=== PATIENT | female | born 1960 | race Caucasian/White ===

== ENCOUNTER → 2016-07-06 | Outpatient (CLI) | payer BC ==
[~2016-07-06] MED LIST: ACET325T96 PO; ALLO100T PO; ASPI1TAB83 PO; HYDR-3419 PO; INSDGI SC; INSU1.2I INJ; LPT/20 PO; LSN5 PO; METF1000 PO; NITR1CAP33 PO; NVLGI/PEN SQ; NVLGIPEN SQ; OMEP20CA9 PO; OXYC-57 PO; POTA1CAP2 PO; POTASSIUM CITRATE PO; TRIA0.1L TOP; VITAMIN B12 PO; VITAMIN D PO; ZINC13CR TOP; [UNRECOGNIZED DRUG - CODE] TOP; [UNRECOGNIZED DRUG - OTHER] PO
--- NOTE | 2016-07-06 20:32 | DIAGNOSTIC IMAGING REPORT ---
KUB HISTORY: Left-sided flank pain. COMPARISON: KUB 12/19/2015. FINDINGS: The bowel gas pattern is unremarkable. There are no dilated loops of small bowel to suggest an obstruction. Prior cholecystectomy. Bilateral sacroiliac joint sclerosis remains unchanged. There are few punctate calcifications in the deep pelvis which likely represent phleboliths. These are similar to the prior studies. Stable 11 mm stone within the upper pole of the left kidney. No right renal calculi identified. No pneumoperitoneum or pneumatosis. IMPRESSION: Stable 11 mm left renal stone. No ureteral calculi identified. Electronically signed by: Fernando Nichols M.D. 07/06/2016 8:31 PM Dictated Date/Time: 07/06/2016 8:28 PM
== END | disposition home or self-care (01) ==
LOC: C.LAB 17:32
PROVIDERS: ATTEND Urology
DX: N39.0 Urinary tract infection, site not specified (principal); N20.0 Calculus of kidney

== ENCOUNTER → 2016-07-10 | Outpatient (CLI) | payer BC ==
--- NOTE | 2016-07-10 17:37 | DIAGNOSTIC IMAGING REPORT ---
CT SCAN OF THE ABDOMEN AND PELVIS WITHOUT IV CONTRAST CLINICAL HISTORY: Flank pain. COMPARISON STUDY: Abdominal CT dated 12/19/2015. TECHNIQUE: CT scan of the abdomen and pelvis is performed from the lung bases to the proximal femora. Images are reviewed in the axial, sagittal, and coronal planes. IV contrast was not administered for this examination. Automated dose control exposure was utilized. CT DOSE: 880.05 mGycm FINDINGS: Lung bases: The heart is normal in size and without pericardial effusion. The lung bases are clear. There is a small hiatal hernia. Liver: The unenhanced liver is normal in size, contour, and attenuation. There is no intrahepatic biliary ductal dilatation. Gallbladder: Surgically absent noting clips in the gallbladder fossa. Spleen: Normal in size and attenuation. Pancreas: Unremarkable. Adrenal glands: A 2.0 cm left adrenal nodule meets CT criteria for a fat-containing adenoma. The right adrenal gland is unremarkable. Kidneys: The unenhanced kidneys are normal in size. There is a 1.5 cm obstructing calculus in the mid left ureter seen on axial image #253. This is located at the level of L5-S1 and causes only minimal left-sided hydronephrosis. 2 additional nonobstructing calculi are seen in the left upper pole measuring up to 9 mm. No right renal calculi are identified and there is no right-sided hydronephrosis. There is no evidence of contour deforming renal mass lesion. There is a circumaortic left renal vein. Abdominal vasculature: The abdominal aorta is normal in course and caliber. Bowel: The small bowel and colon are normal in course and caliber. There is mild colonic diverticulosis without CT evidence of acute diverticulitis. The appendix is well-visualized and normal. Peritoneum: There is no intraperitoneal free air or abdominal ascites. There is a large fat-containing umbilical hernia. Lymphadenopathy: None. Pelvic viscera: The bladder, uterus, and adnexa are normal as visualized. Skeletal structures: No lytic or blastic lesions are seen. Advanced sclerotic change is seen involving the sacroiliac joints. IMPRESSION: 1. There is a 1.5 cm obstructing calculus in the mid left ureter. This causes only minimal left-sided hydronephrosis. 2. Additional nonobstructing left renal calculi as above. 3. Mild colonic diverticulosis without CT evidence of acute diverticulosis. 4. Large fat-containing umbilical hernia. 5. Additional findings as above. Electronically signed by: Jerson Avitia M.D. 07/10/2016 5:35 PM Dictated Date/Time: 07/10/2016 5:29 PM
== END | disposition home or self-care (01) ==
LOC: C.CTS 17:04
PROVIDERS: ATTEND Urology
DX: N20.0 Calculus of kidney (principal); N20.1 Calculus of ureter; K57.30 Diverticulosis of large intestine without perforation or abscess without bleeding; K42.9 Umbilical hernia without obstruction or gangrene

== ENCOUNTER → 2016-07-11 | Outpatient (CLI) | payer BC | END | disposition home or self-care (01) | LOC: C.LABSPEC 17:04 | PROVIDERS: ATTEND Urology | DX: N39.0 Urinary tract infection, site not specified (principal) ==

== ENCOUNTER → 2016-07-17 | Outpatient (CLI) | payer BC ==
[2016-07-17 10:44] LABS: ESTIMATED AVERAGE GLUCOSE 174 mg/dl; HA1C FLAG Normal (Normal)
[2016-07-17 11:58] LABS: RATIO 13.4 mcg/mg (0-30.0)
== END | disposition home or self-care (01) ==
LOC: C.LAB 08:46
PROVIDERS: ATTEND Nurse Practitioner Family
DX: E11.65 Type 2 diabetes mellitus with hyperglycemia (principal)

== ENCOUNTER → 2016-07-25 | Outpatient (CLI) | payer BC ==
[2016-07-25 10:02] LABS: ALT/SGPT 40 U/L (12-78); BLOOD UREA NITROGEN 20 mg/dl (7-18); BUN/CREATININE RATIO 23.1 (10-20); CALCIUM 9.4 mg/dl (8.5-10.1); CARBON DIOXIDE 26 mmol/L (21-32); CHLORIDE 103 mmol/L (98-107); CREATININE 0.87 mg/dl (0.60-1.20); GLUCOSE 165 mg/dl (70-99); POTASSIUM 4.2 mmol/L (3.5-5.1); SODIUM 139 mmol/L (136-145)
[2016-07-25 10:05] LABS: ALKALINE PHOSPHATASE 94 U/L (45-117); AST/SGOT 23 U/L (15-37); URIC ACID 3.4 mg/dl (2.6-7.2)
== END | disposition home or self-care (01) ==
LOC: C.LAB 08:34
PROVIDERS: ATTEND Urology
DX: N20.1 Calculus of ureter (principal)

== ENCOUNTER 2016-08-02 07:28 | Day surgery (SDC) | payer BC ==
[2016-07-30 09:38] VITALS: BMI 38.0
--- NOTE | 2016-07-30 10:08 | PAT Medication Instructions ---
Service Date Jul 30, 2016. Current Home Medication List Allopurinol (Zyloprim), 100 MG PO BID Aspirin (Aspirin), 81 MG PO QAM Atorvastatin (Atorvastatin Calcium), 20 MG PO HS Citric Acid/Sodium Citrate (Citric Acid/Sodium Citrat), 10 ML PO NOON/HS Insulin Aspart (Novolog Flexpen), 5 UNITS SQ BREAKFAST Insulin Aspart (Novolog Flexpen), 10 UNITS SQ LUNCH Insulin Aspart (Novolog Flexpen), 12 UNITS SQ DINNER Insulin Glargine (Toujeo Solostar), 33 INJ HS Lisinopril (Lisinopril), 2.5 MG PO QAM Metformin Hcl (Glucophage), 1,000 MG PO BID Nitrofurantoin Macrocrystals (Macrodantin), 50 MG PO HS Omeprazole (Prilosec), 20 MG PO HS PRN for ACID Oxycodone/Acetaminophen 5MG/325MG (Percocet 5MG/325MG), 1 TABLET PO Q6H PRN for Pain Triamcinolone Acet 0.1% (Kenelog 0.1%), 1 APPL TOP DAILY Zinc Oxide (Topical) (Desitin), 1 APPL TOP DAILY PRN for PRN [Potassium Citrate ], 10 ML PO BID [Vitamin B12], 1 TAB PO QAM [Vitamin D], 1 TAB PO QPM Medication Instructions For Your Scheduled Surgery Aspirin (Aspirin), 81 MG PO QAM (check with surgeon for instructions) - Hold the following medications 24 hours prior to surgery: Zinc Oxide (Topical) (Desitin), 1 APPL TOP DAILY PRN for PRN Triamcinolone Acet 0.1% (Kenelog 0.1%), 1 APPL TOP DAILY - Hold the following medications 48 hours prior to surgery: Metformin Hcl (Glucophage), 1,000 MG PO BID - Hold the following medications the morning of surgery: [Vitamin B12], 1 TAB PO QAM [Potassium Citrate ], 10 ML PO BID Lisinopril (Lisinopril), 2.5 MG PO QAM Insulin Aspart (Novolog Flexpen), 5 UNITS SQ BREAKFAST Insulin Aspart (Novolog Flexpen), 10 UNITS SQ LUNCH Insulin Aspart (Novolog Flexpen), 12 UNITS SQ DINNER - Take the following medications the morning of surgery with a sip of water: Allopurinol (Zyloprim), 100 MG PO BID Oxycodone/Acetaminophen 5MG/325MG (Percocet 5MG/325MG), 1 TABLET PO Q6H PRN for Pain (okay to take up to 4 hours prior to surgery if needed) - Take the following medications as scheduled the night before surgery: [Vitamin D], 1 TAB PO QPM [Potassium Citrate ], 10 ML PO BID Omeprazole (Prilosec), 20 MG PO HS PRN for ACID Nitrofurantoin Macrocrystals (Macrodantin), 50 MG PO HS Insulin Glargine (Toujeo Solostar), 33 INJ HS Citric Acid/Sodium Citrate (Citric Acid/Sodium Citrat), 10 ML PO NOON/HS Atorvastatin (Atorvastatin Calcium), 20 MG PO HS Allopurinol (Zyloprim), 100 MG PO BID Oxycodone/Acetaminophen 5MG/325MG (Percocet 5MG/325MG), 1 TABLET PO Q6H PRN for Pain If you have any questions please call us at [phone] (Martha Nam PA-C) or [phone] or [phone]
--- NOTE | 2016-07-30 10:33 | DIAGNOSTIC IMAGING REPORT ---
CHEST 2 VIEWS ROUTINE CLINICAL HISTORY: Preoperative chest. Left-sided nephrolithiasis. COMPARISON STUDY: 08/19/2014 FINDINGS: The cardiac and mediastinal contours are normal. There is no evidence of focal pulmonary consolidation. There is no evidence of failure. No pleural effusions are visualized.[ IMPRESSION: No active disease in the chest. Electronically signed by: Vicente Ladd M.D. 07/30/2016 10:32 AM Dictated Date/Time: 07/30/2016 10:32 AM
[2016-07-30 10:54] LABS: BASO % 0.2 %; BASO ABS # 0.02 K/uL (0-0.2); COMPLETE YES; HEMATOCRIT 38.7 % (37-47); IG% 0.2 %; LYMPH % 35.8 %; LYMPH ABS # 2.98 K/uL (1.2-3.4); MEAN CELL VOLUME 90.2 fL (80-100); MEAN CORPUSCULAR HEMOGLOBIN 29.1 pg (25-34); MEAN CORPUSCULAR HGB CONC 32.3 g/dl (32-36); MEAN PLATELET VOLUME 10.5 fL (7.4-10.4); MONO % 5.4 %; NEUT % 53.4 %; PLATELET COUNT 282 K/uL (130-400); RED BLOOD COUNT 4.29 M/uL (4.2-5.4); WHITE BLOOD COUNT 8.32 K/uL (4.8-10.8)
[2016-07-30 12:15] LABS: URINE APPEARANCE CLEAR (CLEAR); URINE BILIRUBIN NEG (NEG); URINE COLOR YELLOW; URINE NITRITE NEG (NEG); URINE SPECIFIC GRAVITY 1.025 (1.000-1.030); UROBILINOGEN NEG (NEG)
[2016-07-30 12:21] LABS: MANUAL MICROSCOPIC REQUIRED? NO; REVIEW REQ? NO
[~2016-08-02] VITALS: Ht 144.8 cm; Wt 80.4 kg
[~2016-08-02 07:28] MED LIST changes: -ACET325T96 PO; +CIPROFLOXACIN / D5W 400 MG IV SCH; -HYDR-3419 PO; -INSDGI SC; -POTA1CAP2 PO; -[UNRECOGNIZED DRUG - CODE] TOP
[2016-08-02 07:51] VITALS: BP 147/81; PULSE 92; TEMP 36.4; O2SAT 99; Ht 144.8 cm; Wt 80.4 kg
[2016-08-02] MEDS ORDERED: LIDOCAINE HCL 2% 2 ML VIAL (20MG/ML) ONE (09:40)
[2016-08-02] MEDS ORDERED: MIDAZOLAM HCL 1 MG/ML 2ML VIAL ONE (09:40)
[2016-08-02] MEDS ORDERED: FENTANYL CITRATE INJ 50 MCG/1 ML 2 ML VIAL ONE ×2 (09:40→10:15)
[2016-08-02] MEDS ORDERED: PROPOFOL IV EMULSION 10 MG/ML 20 ML VIAL IV ONE (09:40)
[2016-08-02] MEDS ORDERED: ONDANSETRON INJ 2 MG/ML 2 ML VIAL ONE (09:40)
--- NOTE | 2016-08-02 09:52 | History & Physical Bridge Note ---
H&P Re-Evaluation Bridge Note: I have examined the patient, reviewed the History & Physical and in the interval since the performance of the History & Physical I have noted the following changes of clinical significance: No changes noted
[2016-08-02] MEDS ORDERED: CONRAY 30% 150ML BOTTLE INSTIL ONE (11:21)
[2016-08-02] MEDS ORDERED: NALOXONE HCL 0.4 MG/1 ML VIAL/CARP IV PRN (11:30)
[2016-08-02] MEDS ORDERED: LABETALOL HCL IV 5 MG/ML 20ML IV PRN (11:30)
[2016-08-02] MEDS ORDERED: FENTANYL CITRATE INJ 50 MCG/1 ML 2 ML VIAL IV PRN (11:30)
[2016-08-02] MEDS ORDERED: ATROPINE SULFATE 0.1 MG/ML 5ML SYR IV PRN (11:30)
[2016-08-02] MEDS ORDERED: PROMETHAZINE HCL INJ 12.5 MG in SODIUM CHLORIDE 0.9% 50ML 50 ML IV PRN (11:30)
[2016-08-02] MEDS ORDERED: ONDANSETRON INJ 2 MG/ML 2 ML VIAL IV PRN (11:30)
[2016-08-02] MEDS ORDERED: FLUMAZENIL 0.1 MG/1 ML 10 ML VIAL IV PRN (11:30)
[2016-08-02] MEDS ORDERED: EpHEDrine SULFATE INJ 50 MG/ML AMP IV PRN (11:30)
--- NOTE | 2016-08-02 11:52 | [facility] Post Operative Brief Note ---
Immediate Operative Summary Operative Date Aug 02, 2016. Pre-Operative Diagnosis Left ureteral stones, nephrolithiasis Post-Operative Diagnosis Left ureteral stones, nephrolithiasis Procedure(s) Performed Cystoscopy, Left Ureteroscopy, Laser Lithotripsy, Stone Extraction, Stent Placement Surgeon Dr. Rodriguez Information Operator Surgeon(s) none Estimated Blood Loss 10 cc Findings large left ureteral stone at mid ureteral stone Specimens A: ureteral stone fragments Drains 5 by 24 stent Complication(s) None
--- NOTE | 2016-08-02 11:56 | Discharge Instructions ---
Discharge Instructions Visit Reason for Visit: Stones Discharge Discharge Diagnosis / Problem: post op left ureteroscopy and laser litho and l stent Discharge Goals Goal(s): Decrease discomfort, Improve disease control Activity Recommendations Activity Limitations: resume your previous activity Anesthesia . Post Anesthesia Instructions: If you have had General Anesthesia or IV Sedation: * Do not drive today. * Resume driving when surgeon permits. * Do not make important decisions or sign legal documents today. * Call surgeon for: 1. Temperature elevations greater than 101 degrees F. 2. Uncontrollable pain. 3. Excessive bleeding. 4. Persistent nausea and vomiting. 5. Medication intolerance (nausea, vomiting or rash). * For nausea and vomiting use only clear liquids such as: tea, soda, bouillon until nausea subsides, then gradually increase diet as tolerated. * If you have any concerns or questions, call your surgeon's office. If physician is unavailable and it is an emergency, call 911 or go to the nearest emergency room. . Diet Recommendations Recommended Home Diet: resume previous diet Procedures Procedures Performed: Cystoscopy, Left Ureteroscopy, Laser Lithotripsy, Stone Extraction, Stent Placement Pending Studies Studies pending at discharge: yes List of pending studies: kub Medical Emergencies . Who to Call and When: Medical Emergencies: If at any time you feel your situation is an emergency, please call 911 immediately. . Non-Emergent Contact Non-Emergency issues call your: Urologist . . "Provider Documentation" section prepared by Jermaine Rodriguez.
--- NOTE | 2016-08-02 12:18 | DIAGNOSTIC IMAGING REPORT ---
KUB CLINICAL HISTORY: l mid stones nephrocalcinosis COMPARISON STUDY: 07/06/2016 FINDINGS: Placement of a left ureteral stent. This is in good position. Kidneys are suboptimally seen due to overlap artifact although the calcification previously described overlying left kidney is not appreciated currently. IMPRESSION: 1. Placement of left ureteral stent. 2. Left renal calcification is not appreciated currently although visibility of the kidneys is compromised due to overlapping bowel content Electronically signed by: Nilson Chiu M.D. 08/02/2016 12:16 PM Dictated Date/Time: 08/02/2016 12:15 PM
[2016-08-02] MEDS ORDERED: LABETALOL HCL IV 5 MG/ML 20ML ONE (12:19)
[2016-08-02] MEDS ORDERED: LABETALOL HCL IV 5 MG/ML 20ML IV STA (12:22)
--- NOTE | 2016-08-02 12:28 | DIAGNOSTIC IMAGING REPORT ---
RETROGRADE INCLUDES KUB HISTORY: LT CYSTO/LASER/STENT FLUOROSCOPY TIME: 26 seconds. FINDINGS: 6 fluoroscopic spot images were submitted for review. Initial images demonstrate a catheter within the mid left ureter with retrograde opacification of the ureter and renal collecting system. This is followed by placement of a guidewire, balloon sweep, and left ureteral stent placement. Proximal to mid stent appears be in good position. The distal stent was not included on this study. IMPRESSION: Fluoroscopy provided for left ureteral stent placement. Electronically signed by: Fernando Nichols M.D. 08/02/2016 12:26 PM Dictated Date/Time: 08/02/2016 12:25 PM
--- NOTE | 2016-08-02 12:38 | Anesthesiology Progress Note ---
Anesthesia Post Op Note Date & Time Aug 02, 2016 at 12:38 Vital Signs Pain Intensity: 0 Vital Signs Past 12 Hours Date Time Temp Pulse Resp B/P Pulse Ox O2 Delivery O2 Flow Rate FiO2 08/02/16 12:36 75 16 08/02/16 12:36 73 16 93 08/02/16 12:34 136/90 08/02/16 12:31 77 18 93 08/02/16 12:31 76 18 08/02/16 12:29 142/105 08/02/16 12:26 84 19 08/02/16 12:26 83 19 95 08/02/16 12:24 152/99 08/02/16 12:21 84 22 95 08/02/16 12:21 82 22 08/02/16 12:18 162/99 08/02/16 12:16 90 15 160/114 97 08/02/16 12:16 90 15 08/02/16 12:11 93 17 08/02/16 12:11 94 17 148/126 93 08/02/16 12:06 93 20 100 08/02/16 12:06 91 20 08/02/16 12:01 92 21 08/02/16 12:01 92 21 100 08/02/16 11:56 92 17 100 08/02/16 11:56 90 17 08/02/16 11:55 93 17 08/02/16 11:55 94 17 144/92 100 08/02/16 11:50 89 13 08/02/16 11:50 90 13 100 08/02/16 11:49 148/93 08/02/16 11:45 90 12 100 08/02/16 11:45 91 12 08/02/16 11:44 144/92 08/02/16 11:40 88 16 100 08/02/16 11:40 88 16 151/95 08/02/16 11:40 36.8 92 16 151/95 100 Mask 10 08/02/16 07:51 36.4 92 18 147/81 99 Room Air Notes Mental Status: alert / awake / arousable, participated in evaluation Pt Amnestic to Procedure: Yes Nausea / Vomiting: adequately controlled Pain: adequately controlled Airway Patency, RR, SpO2: stable & adequate BP & HR: stable & adequate Hydration State: stable & adequate Anesthetic Complications: no major complications apparent
[2016-08-02 12:45] VITALS: BP 145/87; PULSE 81; TEMP 36.9; O2SAT 94
[2016-08-02 13:15] VITALS: BP 154/79; PULSE 81; TEMP 36.8; O2SAT 96
[2016-08-02 13:45] VITALS: BP 121/90; PULSE 89; TEMP 36.8; O2SAT 96
--- NOTE | 2016-08-02 18:28 | OPERATIVE REPORT ---
DATE OF OPERATION: 08/02/2016 PREOPERATIVE DIAGNOSIS: Left mid ureteral stone. POSTOPERATIVE DIAGNOSIS: Same. SURGEON: Dr. Rodriguez. ANESTHESIA: General. PROCEDURE PERFORMED: Left ureteroscopy, laser lithotripsy, stone extraction and left stent. INDICATIONS: The patient is a 55-year-old female with a previous uric acid stone that was treated with alkalinization and dissolved who presented with a left renal stone that was nonobstructing, but discomfort, had a CAT scan that showed a large obstructing mid left ureteral stone. She was given alkalinization but this did not dissolve the stone on repeat x-ray and she had continuing ongoing pain. She was scheduled for ureteroscopy. DESCRIPTION OF THE PROCEDURE: She was taken to the cysto suite. She had Venodyne stockings placed and was given antibiotics. She was placed in the dorsal lithotomy position and prepped and draped in the usual sterile fashion. A 21-Togolese cystoscope was passed per urethra and a retrograde was done through a 5-Togolese open-ended catheter on the left side. It showed a filling defect just above the iliac crest. The distal ureter was dilated with a balloon dilation, a semi-rigid ureteroscope was passed up to the stone after a guidewire had been passed for the balloon dilation and was left in place. Once the stone there, it was fragmented into multiple fragments at settings of 0.5 and 5, many of the fragments were grasped and removed with a 3-prong grasper and sent to pathology. The rest were in the bladder. No large fragments were seen in the ureter and all the way up to the UPJ. At the end of the procedure, a stone had been impacted in this one area, did not see any large fragments still there, but there appeared to be a blood vessel just in that area and there clearly had been impacted and was irritated. I left a 5-Togolese 24 cm stent as the patient would have swelling in this area and wanted this area to heal, we will leave this in a little longer than I normally would and in addition, we will plan to consider doing a left renal ESWL for the proximal stone in the kidney. Postoperatively, did get a KUB and did not see that stone, so it is possible that it had already fallen down and it was also fragmented. There were no complications at the end of the procedure. A 5, 24 stent was placed and as previously stated and bladder was emptied and she was transferred to the recovery room in stable condition. I attest to the content of the Intraoperative Record and any orders documented therein. Any exceptio ns are noted below.
[2016-08-09] MEDS ORDERED: POTA1CAP2 PO (07:35)
[2016-08-10] MEDS ORDERED: NITR1CAP33 PO (07:41)
[2016-08-10] MEDS ORDERED: HYDR-3419 PO (07:43)
[2016-08-24] MEDS ORDERED: HYDR-3419 PO (10:34)
== END 2016-08-02 14:14 | disposition home or self-care (01) ==
LOC: C.ACU 07:28
PROVIDERS: ATTEND Urology
DX: N20.1 Calculus of ureter (principal); Z87.442 Personal history of urinary calculi; N39.0 Urinary tract infection, site not specified; R31.0 Gross hematuria; G62.9 Polyneuropathy, unspecified; F43.20 Adjustment disorder, unspecified; Z68.37 Body mass index [BMI] 37.0-37.9, adult; E11.9 Type 2 diabetes mellitus without complications; J45.909 Unspecified asthma, uncomplicated; E78.00 Pure hypercholesterolemia, unspecified; I10 Essential (primary) hypertension; D49.7 Neoplasm of unspecified behavior of endocrine glands and other parts of nervous system; E66.9 Obesity, unspecified; L40.9 Psoriasis, unspecified; Z98.890 Other specified postprocedural states; Z83.3 Family history of diabetes mellitus; Z82.49 Family history of ischemic heart disease and other diseases of the circulatory system

== ENCOUNTER → 2016-08-09 | Outpatient (CLI) | payer BC ==
[~2016-08-09] MED LIST changes: -CIPROFLOXACIN / D5W 400 MG IV SCH; +HYDR-3419 PO; +POTA1CAP2 PO
--- NOTE | 2016-08-09 19:39 | DIAGNOSTIC IMAGING REPORT ---
KUB CLINICAL HISTORY: Nephrolithiasis. Final is: An AP abdominal radiograph is compared to study dated 08/07/2016 and correlated with abdominal CT dated 07/10/2016. A left ureteral stent is unchanged in position. No calculi are identified along the course of the stent. An 11 mm nonobstructing left renal calculus is again noted. No calcifications are seen projecting over the right kidney or along the course the right ureter. Pelvic phleboliths are observed. There is a nonobstructed abdominal bowel gas pattern. Cholecystectomy clips are identified. The skeletal structures are osteopenic. Advanced sclerotic change is seen in the sacroiliac joints. IMPRESSION: 1. A left ureteral stent is unchanged in position. No calcifications are seen along the course of the stent. 2. An 11 mm nonobstructing left calculus is unchanged appearance. 3. No right renal calculi are identified. Electronically signed by: Jerson Avitia M.D. 08/09/2016 7:38 PM Dictated Date/Time: 08/09/2016 7:37 PM
== END | disposition home or self-care (01) ==
LOC: C.RAD 18:33
PROVIDERS: ATTEND Urology
DX: N20.0 Calculus of kidney (principal); N20.1 Calculus of ureter

== ENCOUNTER → 2016-08-10 | Day surgery (SDC) | payer BC ==
--- NOTE | 2016-08-07 11:52 | DIAGNOSTIC IMAGING REPORT ---
KUB CLINICAL HISTORY: Nephrolithiasis. Final is: An AP abdominal radiograph is compared to study dated 08/02/2016 and correlated with abdominal CT dated 07/10/2016. A left ureteral stent is unchanged in position. No calculi are identified along the course of the stent. An 11 mm nonobstructing left renal calculus is again noted. No calcifications are seen projecting over the right kidney or along the course the right ureter. Pelvic phleboliths are observed. There is a nonobstructed abdominal bowel gas pattern. Cholecystectomy clips are identified. The skeletal structures are osteopenic. Advanced sclerotic change is seen in the sacroiliac joints. IMPRESSION: 1. A left ureteral stent is unchanged in position. No calcifications are seen along the course of the stent. 2. An 11 mm nonobstructing left calculus is noted. 3. No right renal calculi are identified. Electronically signed by: Jerson Avitia M.D. 08/07/2016 11:50 AM Dictated Date/Time: 08/07/2016 11:48 AM
[2016-08-09 07:36] VITALS: Ht 144.8 cm; Wt 80.5 kg
[~2016-08-10] VITALS: Ht 144.8 cm; Wt 80.5 kg
[~2016-08-10] MED LIST changes: +ATROPINE SULFATE 0.1 MG/ML 5ML SYR IV PRN; +CIPROFLOXACIN 400MG / D5W IV SCH; +DEXAMETHASONE SOD INJ 4 MG/ML VIAL ONE; +EpHEDrine SULFATE INJ 50 MG/ML AMP IV PRN; +FENTANYL CITRATE INJ 50 MCG/1 ML 2 ML VIAL ONE; +LACTATED RINGER'S 1000ML 1,000 ML IV SCH; +LIDOCAINE HCL 2% 2 ML VIAL (20MG/ML) ONE; +MIDAZOLAM HCL 1 MG/ML 2ML VIAL ONE; +ONDANSETRON INJ 2 MG/ML 2 ML VIAL ONE; -OXYC-57 PO; -POTASSIUM CITRATE PO; +PROPOFOL IV EMULSION 10 MG/ML 20 ML VIAL IV ONE; -[UNRECOGNIZED DRUG - OTHER] PO
--- NOTE | 2016-08-10 07:42 | Discharge Instructions-SurgCtr ---
Discharge Instructions Visit Reason for Visit: Stones;Nephrolithiasis N20.0 Discharge Goals Goal(s): Improve function, Improve disease control Medications Stopped Medications Name(s): Stopped Metformin for 48 hours. Off ASA 81mg for one month. Told not to take any meds this am. Activity Recommendations Activity Limitations: resume your previous activity Anesthesia . Post Anesthesia Instructions: If you have had General Anesthesia or IV Sedation: * Do not drive today. * Resume driving when surgeon permits. * Do not make important decisions or sign legal documents today. * Call surgeon for: 1. Temperature elevations greater than 101 degrees F. 2. Uncontrollable pain. 3. Excessive bleeding. 4. Persistent nausea and vomiting. 5. Medication intolerance (nausea, vomiting or rash). * For nausea and vomiting use only clear liquids such as: tea, soda, bouillon until nausea subsides, then gradually increase diet as tolerated. * If you have any concerns or questions, call your surgeon's office. If physician is unavailable and it is an emergency, call 911 or go to the nearest emergency room. . Diet Recommendations Home Diet: resume previous diet (no driving on narcotics) Procedures Procedures Performed: Left Extracorporeal Shock Wave Lithotripsy-renal Medical Emergencies . Who to Call and When: Medical Emergencies: If at any time you feel your situation is an emergency, please call 911 immediately. . Non-Emergent Contact . . "Provider Documentation" section prepared by Jermaine Rodriguez.
--- NOTE | 2016-08-10 08:15 | [facility] Post Operative Brief Note ---
Immediate Operative Summary Operative Date Aug 10, 2016. Pre-Operative Diagnosis Left renal stone Post-Operative Diagnosis same Procedure(s) Performed Left Extracorporeal Shock Wave Lithotripsy-renal Surgeon Dr Rodriguez Train Driver Surgeon(s) 0 Estimated Blood Loss 0 Findings l renal stone Specimens 0
[2016-08-10 08:20] VITALS: TEMP 36.1
--- NOTE | 2016-08-10 08:29 | Anesthesia Progress Nt - [facility] ---
Anesthesia Post Op Note Date & Time Aug 10, 2016 at 08:29 Vital Signs Pain Intensity: 0 Vital Signs Past 12 Hours Date Time Temp Pulse Resp B/P Pulse Ox O2 Delivery O2 Flow Rate FiO2 08/10/16 08:20 36.1 84 14 122/85 96 Room Air 08/10/16 08:15 127/86 08/10/16 08:13 88 20 08/10/16 08:13 89 20 95 08/10/16 08:12 86 17 08/10/16 08:12 85 17 95 08/10/16 08:10 36.7 94 25 139/85 94 Room Air 08/10/16 08:10 139/85 08/10/16 08:07 95 18 95 08/10/16 08:07 93 18 08/10/16 08:05 128/96 08/10/16 08:02 89 19 94 08/10/16 08:02 88 19 08/10/16 08:00 127/82 08/10/16 07:57 94 19 08/10/16 07:57 93 19 94 08/10/16 07:55 120/77 08/10/16 07:52 92 23 08/10/16 07:52 92 23 98 08/10/16 07:50 120/89 08/10/16 07:47 89 15 08/10/16 07:47 36.4 91 12 118/74 98 Mask 6 08/10/16 07:47 89 15 118/74 97 08/10/16 06:39 36.8 112 16 158/87 95 Room Air Notes Mental Status: alert / awake / arousable, participated in evaluation Pt Amnestic to Procedure: Yes Nausea / Vomiting: adequately controlled Pain: adequately controlled Airway Patency, RR, SpO2: stable & adequate BP & HR: stable & adequate Hydration State: stable & adequate Anesthetic Complications: no major complications apparent
[2016-08-10 08:43] VITALS: BP 151/84; PULSE 87; O2SAT 99
--- NOTE | 2016-08-10 12:29 | OPERATIVE REPORT ---
DATE OF OPERATION: 08/10/2016 PREOPERATIVE DIAGNOSIS: Left renal stone. POSTOPERATIVE DIAGNOSIS: Same. INDICATIONS: The patient is a 55-year-old female status post left ureteroscopy for a uric acid mid ureteral stone. She had a stent placed and had a proximal stone 1.1 cm, who is brought for definitive lithotripsy for this stone. DESCRIPTION OF THE PROCEDURE: The patient was taken to the operating room where anesthesia was administered. She had Venodyne stockings placed. She was given 2500 shocks, the majority at level 4. The stone appeared to fragment well. At the end of the procedure, the patient was transferred to the recovery room in stable condition. I attest to the content of the Intraoperative Record and any orders documented therein. Any exceptio ns are noted below.
== END | disposition home or self-care (01) ==
LOC: X.SURG 06:13
PROVIDERS: ATTEND Urology
DX: N20.0 Calculus of kidney (principal); R31.0 Gross hematuria; Z87.442 Personal history of urinary calculi; G62.9 Polyneuropathy, unspecified; N39.0 Urinary tract infection, site not specified; E11.9 Type 2 diabetes mellitus without complications; N28.1 Cyst of kidney, acquired; J45.909 Unspecified asthma, uncomplicated; E78.00 Pure hypercholesterolemia, unspecified; I10 Essential (primary) hypertension; D49.7 Neoplasm of unspecified behavior of endocrine glands and other parts of nervous system; E66.9 Obesity, unspecified

== ENCOUNTER → 2016-08-14 | Outpatient (CLI) | payer BC ==
[~2016-08-14] MED LIST changes: -ATROPINE SULFATE 0.1 MG/ML 5ML SYR IV PRN; -CIPROFLOXACIN 400MG / D5W IV SCH; -DEXAMETHASONE SOD INJ 4 MG/ML VIAL ONE; -EpHEDrine SULFATE INJ 50 MG/ML AMP IV PRN; -FENTANYL CITRATE INJ 50 MCG/1 ML 2 ML VIAL ONE; -LACTATED RINGER'S 1000ML 1,000 ML IV SCH; -LIDOCAINE HCL 2% 2 ML VIAL (20MG/ML) ONE; -MIDAZOLAM HCL 1 MG/ML 2ML VIAL ONE; -ONDANSETRON INJ 2 MG/ML 2 ML VIAL ONE; -PROPOFOL IV EMULSION 10 MG/ML 20 ML VIAL IV ONE
--- NOTE | 2016-08-14 09:48 | DIAGNOSTIC IMAGING REPORT ---
KUB HISTORY: N20.0 [id number] Ureteric [id number] COMPARISON: KUB 08/09/2016. FINDINGS: The bowel gas pattern is unremarkable. There are no dilated loops of small bowel to suggest an obstruction. The left ureteral stent is unchanged in position. There is no stone within the left kidney which is also unchanged. No ureteral calculi identified. No right renal stones. Stable pelvic phleboliths. No pneumoperitoneum or pneumatosis. IMPRESSION: 1. The left ureteral stent appears to be in good position. No ureteral stones identified. 2. No change in the 11 mm stone within the left kidney. 3. No right renal calculi. Electronically signed by: Fernando Nichols M.D. 08/14/2016 9:46 AM Dictated Date/Time: 08/14/2016 9:45 AM
[2016-08-14 12:09] LABS: BASO % 0.2 %; BASO ABS # 0.02 K/uL (0-0.2); COMPLETE YES; EOS % 3.7 %; HEMATOCRIT 39.3 % (37-47); IG% 0.2 %; LYMPH % 25.6 %; LYMPH ABS # 2.34 K/uL (1.2-3.4); MEAN CELL VOLUME 87.3 fL (80-100); MEAN CORPUSCULAR HEMOGLOBIN 28.4 pg (25-34); MEAN CORPUSCULAR HGB CONC 32.6 g/dl (32-36); MEAN PLATELET VOLUME 10.1 fL (7.4-10.4); MONO % 6.1 %; NEUT % 64.2 %; PLATELET COUNT 308 K/uL (130-400); WHITE BLOOD COUNT 9.13 K/uL (4.8-10.8)
[2016-08-14 12:50] LABS: ALT/SGPT 41 U/L (12-78); AST/SGOT 17 U/L (15-37); BLOOD UREA NITROGEN 19 mg/dl (7-18); BUN/CREATININE RATIO 22.9 (10-20); CARBON DIOXIDE 26 mmol/L (21-32); CHLORIDE 101 mmol/L (98-107); CREATININE 0.84 mg/dl (0.60-1.20); POTASSIUM 4.5 mmol/L (3.5-5.1); SODIUM 138 mmol/L (136-145)
[2016-08-14 12:51] LABS: ALKALINE PHOSPHATASE 107 U/L (45-117)
== END | disposition home or self-care (01) ==
LOC: C.RAD 09:18
PROVIDERS: ATTEND Urology
DX: N20.0 Calculus of kidney (principal); N20.1 Calculus of ureter

== ENCOUNTER → 2016-08-24 | Day surgery (SDC) | payer BC ==
[2016-08-22 13:40] VITALS: Ht 144.8 cm; Wt 80.5 kg
--- NOTE | 2016-08-23 19:33 | DIAGNOSTIC IMAGING REPORT ---
KUB HISTORY: Nephrolithiasis. COMPARISON: KUB 08/14/2016. FINDINGS: The bowel gas pattern is unremarkable. There are no dilated loops of small bowel to suggest an obstruction. The renal shadows are partially obscured by overlying bowel gas. There is faint visualization of the dominant 10 mm stone within the upper pole the left kidney. This remains unchanged. No right renal calculi identified. Cholecystectomy. No ureteral calculi. Calcifications in the deep pelvis likely represent phleboliths. These remain unchanged. The left ureteral stent is likely due to position. This is also unchanged. No pneumoperitoneum or pneumatosis. IMPRESSION: 1. The left ureteral stent appears in good position. No ureteral stones identified. 2. No change in the 1 cm left renal stone. 3. No right renal calculi. Electronically signed by: Fernando Nichols M.D. 08/23/2016 7:32 PM Dictated Date/Time: 08/23/2016 7:30 PM
[~2016-08-24] VITALS: Ht 144.8 cm; Wt 80.5 kg
[~2016-08-24] MED LIST changes: +ATROPINE SULFATE 0.1 MG/ML 5ML SYR IV PRN; +CIPROFLOXACIN 400MG / D5W IV SCH; +DEXAMETHASONE SOD INJ 4 MG/ML VIAL IV PRN; +EpHEDrine SULFATE INJ 50 MG/ML AMP IV PRN; +FENTANYL CITRATE INJ 50 MCG/1 ML 2 ML VIAL IV PRN; +FENTANYL CITRATE INJ 50 MCG/1 ML 2 ML VIAL ONE; +KETOROLAC TROMETHAMINE 30 MG/ML VIAL IV. PRN; +KETOROLAC TROMETHAMINE 30 MG/ML VIAL ONE; +LABETALOL HCL IV 5 MG/ML 20ML IV PRN; +LACTATED RINGER'S 1000ML 1,000 ML IV SCH; +LIDOCAINE HCL 2% 2 ML VIAL (20MG/ML) ONE; +METOCLOPRAMIDE HCL INJ 5 MG/ML 2 ML VIAL IV PRN; +MIDAZOLAM HCL 1 MG/ML 2ML VIAL ONE; +MoRPHine SULFATE 10 MG/ML CARP/VIAL IV PRN; +ONDANSETRON INJ 2 MG/ML 2 ML VIAL IV PRN; +ONDANSETRON INJ 2 MG/ML 2 ML VIAL ONE; +OXYCODONE/ACETAMINOPHEN 5-325 TAB PO PRN; +PHENYLEPHRINE 100MCG/ML 5ML SYR IV PRN; +PROPOFOL IV EMULSION 10 MG/ML 20 ML VIAL IV ONE; +SODIUM CHLORIDE 0.9% 1000ML 1,000 ML IV SCH
--- NOTE | 2016-08-24 10:35 | Discharge Instructions-SurgCtr ---
Discharge Instructions Date of Service Aug 24, 2016. Visit Reason for Visit: Stones Discharge Discharge Diagnosis / Problem: treat stones Discharge Goals Goal(s): Decrease discomfort, Improve function, Increase independence, Improve disease control Medications Stopped Medications Name(s): D/C'D ASA 07/13/16 and D/C'D Metformin x 48 hrs. Also told not to take a.m. meds. Activity Recommendations Activity Limitations: resume your previous activity Lifting Limitations: none Exercise/Sports Limitations: none May Resume Sexual Activity: when tolerated Shower/Bathe: no limitations Driving or Machine Use: no limitations Anesthesia . Post Anesthesia Instructions: If you have had General Anesthesia or IV Sedation: * Do not drive today. * Resume driving when surgeon permits. * Do not make important decisions or sign legal documents today. * Call surgeon for: 1. Temperature elevations greater than 101 degrees F. 2. Uncontrollable pain. 3. Excessive bleeding. 4. Persistent nausea and vomiting. 5. Medication intolerance (nausea, vomiting or rash). * For nausea and vomiting use only clear liquids such as: tea, soda, bouillon until nausea subsides, then gradually increase diet as tolerated. * If you have any concerns or questions, call your surgeon's office. If physician is unavailable and it is an emergency, call 911 or go to the nearest emergency room. . Diet Recommendations Home Diet: no limitations Procedures Procedures Performed: Left Extracorporeal Shock Wave Lithotripsy, Repeat - Ureteral Pending Studies Studies pending at discharge: no Medical Emergencies . Who to Call and When: Medical Emergencies: If at any time you feel your situation is an emergency, please call 911 immediately. . Non-Emergent Contact Non-Emergency issues call your: Urologist Call Non-Emergent contact if: you have a fever, temperature is above 101.5, your pain is not controlled, your pain is worsening . . "Provider Documentation" section prepared by Arnaldo Colon.
--- NOTE | 2016-08-24 10:48 | [facility] Post Operative Brief Note ---
Immediate Operative Summary Operative Date Aug 24, 2016. Pre-Operative Diagnosis Left Ureteral Calculi Post-Operative Diagnosis Same Procedure(s) Performed Left Extracorporeal Shock Wave Lithotripsy, Repeat - Ureteral Surgeon Dr. Larry [employer] Architect Surgeon(s) None Estimated Blood Loss 0 mL Findings L sided stone adjacent to the stent Specimens None Drains none Anesthesia gen Complication(s) None Disposition Recovery Room / PACU (stable)
[2016-08-24 11:10] VITALS: TEMP 36.4
--- NOTE | 2016-08-24 11:42 | Anesthesia Progress Nt - [facility] ---
Anesthesia Post Op Note Date & Time Aug 24, 2016 at 11:43 Vital Signs Pain Intensity: 0 Vital Signs Past 12 Hours Date Time Temp Pulse Resp B/P Pulse Ox O2 Delivery O2 Flow Rate FiO2 08/24/16 11:30 77 16 126/84 97 Room Air 08/24/16 11:12 79 21 08/24/16 11:12 79 21 94 08/24/16 11:11 120/79 08/24/16 11:10 36.4 80 20 118/75 94 Room Air 08/24/16 11:08 78 21 95 08/24/16 11:08 78 21 08/24/16 11:06 118/75 08/24/16 11:03 81 15 96 08/24/16 11:03 81 15 08/24/16 11:01 117/81 08/24/16 10:58 89 16 08/24/16 10:58 86 16 100 08/24/16 10:56 133/83 08/24/16 10:53 83 19 99 08/24/16 10:53 83 19 08/24/16 10:52 89 26 100 08/24/16 10:52 88 26 08/24/16 10:51 132/81 08/24/16 10:47 86 27 08/24/16 10:47 87 27 99 08/24/16 10:46 129/83 08/24/16 10:43 110/88 08/24/16 10:42 88 15 98 08/24/16 10:42 36.4 87 16 110/88 97 Diffusion Mask 6 08/24/16 10:42 90 15 08/24/16 08:39 36.5 101 16 135/88 100 Room Air Notes Mental Status: alert / awake / arousable, participated in evaluation Pt Amnestic to Procedure: Yes Nausea / Vomiting: adequately controlled Pain: adequately controlled Airway Patency, RR, SpO2: stable & adequate BP & HR: stable & adequate Hydration State: stable & adequate Anesthetic Complications: no major complications apparent
[2016-08-24 11:47] VITALS: BP 137/86; PULSE 81; O2SAT 97
--- NOTE | 2016-08-26 11:35 | OPERATIVE REPORT ---
DATE OF OPERATION: 08/24/2016 PREOPERATIVE DIAGNOSIS: Left renal calculus. POSTOPERATIVE DIAGNOSIS: Left renal calculus. PROCEDURE: Left extracorporeal shockwave lithotripsy. ANESTHESIA: General. ESTIMATED BLOOD LOSS: 0. URINE OUTPUT: Not recorded. SPECIMENS: There were no specimens. DRAINS: There were no drains. COMPLICATIONS: There were no complications. DESCRIPTION OF THE PROCEDURE: Nanette Eng was identified in the preoperative holding area. Appropriate informed consents reviewed and completed and the patient was transported to the operating suite. Upon arrival, she received appropriate preoperative antibiotics in the form of ciprofloxacin and adequate general anesthesia. She was placed in supine position, where the stone was localized in the kidney. We commenced lithotripsy with a total of 2500 shocks delivered to the stone. Further details can be found on the [facility] Information Sheet. At the conclusion of the case, the patient was extubated and taken to the PACU in stable condition. I attest to the content of the Intraoperative Record and any orders documented therein. Any exceptio ns are noted below.
== END | disposition home or self-care (01) ==
LOC: X.SURG 08:24
PROVIDERS: ATTEND Urology
DX: N20.0 Calculus of kidney (principal); I10 Essential (primary) hypertension; E11.9 Type 2 diabetes mellitus without complications; F43.20 Adjustment disorder, unspecified; J45.909 Unspecified asthma, uncomplicated; E78.00 Pure hypercholesterolemia, unspecified; E66.9 Obesity, unspecified; G62.9 Polyneuropathy, unspecified; N28.1 Cyst of kidney, acquired; Z98.890 Other specified postprocedural states; Z83.3 Family history of diabetes mellitus; Z82.49 Family history of ischemic heart disease and other diseases of the circulatory system

== ENCOUNTER → 2016-08-29 | Outpatient (CLI) | payer BC ==
[~2016-08-29] MED LIST changes: -ATROPINE SULFATE 0.1 MG/ML 5ML SYR IV PRN; -CIPROFLOXACIN 400MG / D5W IV SCH; -DEXAMETHASONE SOD INJ 4 MG/ML VIAL IV PRN; -EpHEDrine SULFATE INJ 50 MG/ML AMP IV PRN; -FENTANYL CITRATE INJ 50 MCG/1 ML 2 ML VIAL IV PRN; -FENTANYL CITRATE INJ 50 MCG/1 ML 2 ML VIAL ONE; -KETOROLAC TROMETHAMINE 30 MG/ML VIAL IV. PRN; -KETOROLAC TROMETHAMINE 30 MG/ML VIAL ONE; -LABETALOL HCL IV 5 MG/ML 20ML IV PRN; -LACTATED RINGER'S 1000ML 1,000 ML IV SCH; -LIDOCAINE HCL 2% 2 ML VIAL (20MG/ML) ONE; -METOCLOPRAMIDE HCL INJ 5 MG/ML 2 ML VIAL IV PRN; -MIDAZOLAM HCL 1 MG/ML 2ML VIAL ONE; -MoRPHine SULFATE 10 MG/ML CARP/VIAL IV PRN; -ONDANSETRON INJ 2 MG/ML 2 ML VIAL IV PRN; -ONDANSETRON INJ 2 MG/ML 2 ML VIAL ONE; -OXYCODONE/ACETAMINOPHEN 5-325 TAB PO PRN; -PHENYLEPHRINE 100MCG/ML 5ML SYR IV PRN; -PROPOFOL IV EMULSION 10 MG/ML 20 ML VIAL IV ONE; -SODIUM CHLORIDE 0.9% 1000ML 1,000 ML IV SCH
--- NOTE | 2016-08-29 12:43 | DIAGNOSTIC IMAGING REPORT ---
KUB CLINICAL HISTORY: N20.0 Nephrolithiasis BE DONE EITHER THE NIGHT BEFORE OR MERINO COMPARISON STUDY: 08/23/2016 FINDINGS: Left ureteral stent remains in good position. Continues be a calcification central left kidney measuring 9 mm. Bowel pattern is nonobstructive. IMPRESSION: Left ureteral stent in good position. Unchanging 9 mm calcification central left kidney Electronically signed by: Nilson Chiu M.D. 08/29/2016 12:42 PM Dictated Date/Time: 08/29/2016 12:39 PM
== END | disposition home or self-care (01) ==
LOC: C.RAD 12:19
PROVIDERS: ATTEND Urology
DX: N20.0 Calculus of kidney (principal)

== ENCOUNTER → 2016-08-29 | Outpatient (CLI) | payer BC | END | disposition home or self-care (01) | LOC: C.LABSPEC 10:54 | PROVIDERS: ATTEND Urology | DX: N20.0 Calculus of kidney (principal) ==

== ENCOUNTER → 2016-09-12 | Outpatient (CLI) | payer BC ==
--- NOTE | 2016-09-12 09:49 | DIAGNOSTIC IMAGING REPORT ---
KUB CLINICAL HISTORY: N20.0 [id number] COMPARISON STUDY: 08/27/2016 FINDINGS: There is no pathologic bowel dilatation. No right renal calculi are visualized. There is an equivocal punctate left renal calculus. There are surgical clips within the right upper quadrant consistent with a prior cholecystectomy. There has been interval removal of the double-pigtail left-sided nephroureteral stent. Pelvic basin calcifications, likely represent phleboliths. IMPRESSION: 1. Equivocal punctate left renal calculus 2. Interval removal of the double-pigtail left-sided nephroureteral stent 3. No evidence of pathologic bowel dilatation Electronically signed by: Vicente Ladd M.D. 09/12/2016 9:47 AM Dictated Date/Time: 09/12/2016 9:46 AM
== END | disposition home or self-care (01) ==
LOC: C.RAD 09:12
PROVIDERS: ATTEND Urology
DX: N20.0 Calculus of kidney (principal)

== ENCOUNTER → 2016-11-06 | Outpatient (CLI) | payer BC ==
--- NOTE | 2016-11-06 09:57 | DIAGNOSTIC IMAGING REPORT ---
KUB HISTORY: N20.0 Nephrolithiasis COMPARISON: KUB 09/12/2016. FINDINGS: The bowel gas pattern is unremarkable. There are no dilated loops of small bowel to suggest an obstruction. Stable punctate stone within the left kidney. No right renal calculi identified.. No ureteral calculi. Calcifications in the deep pelvis likely represent phleboliths. These remain unchanged. No pneumoperitoneum or pneumatosis. Cholecystectomy. IMPRESSION: Stable left-sided nephrolithiasis. No ureteral calculi. Electronically signed by: Fernando Nichols M.D. 11/06/2016 9:56 AM Dictated Date/Time: 11/06/2016 9:54 AM
== END | disposition home or self-care (01) ==
LOC: C.RAD 09:16
PROVIDERS: ATTEND Urology
DX: N20.0 Calculus of kidney (principal)

== ENCOUNTER → 2017-05-10 | Outpatient (CLI) | payer BC ==
[2017-05-10 10:28] LABS: BLOOD UREA NITROGEN 19 mg/dl (7-18); BUN/CREATININE RATIO 20.8 (10-20); CALCIUM 9.8 mg/dl (8.5-10.1); CARBON DIOXIDE 28 mmol/L (21-32); CHLORIDE 101 mmol/L (98-107); CREATININE 0.93 mg/dl (0.60-1.20); GLUCOSE 226 mg/dl (70-99); POTASSIUM 4.1 mmol/L (3.5-5.1); SODIUM 138 mmol/L (136-145)
[2017-05-10 10:31] LABS: ALT/SGPT 84 U/L (12-78); BLOOD UREA NITROGEN 19 mg/dl (7-18); BUN/CREATININE RATIO 20.8 (10-20); CREATININE 0.92 mg/dl (0.60-1.20)
[2017-05-10 10:34] LABS: ALKALINE PHOSPHATASE 108 U/L (45-117); AST/SGOT 56 U/L (15-37)
[2017-05-10 10:40] LABS: RATIO 22.9 mcg/mg (0-30.0)
[2017-05-10 10:41] LABS: CHOLESTEROL 175 mg/dl (0-200); CHOLESTEROL/HDL RATIO 3.1; HDL CHOLESTEROL 56 mg/dl; LDL CHOLESTEROL CALCULATED 78 mg/dl; TRIGLYCERIDES 205 mg/dl (0-150); VERY LOW DENSITY LIPOPROT CALC 41 mg/dl
[2017-05-10 11:12] LABS: ESTIMATED AVERAGE GLUCOSE 189 mg/dl; HA1C FLAG Normal (Normal)
== END | disposition home or self-care (01) ==
LOC: C.LAB 09:37
PROVIDERS: ATTEND Nurse Practitioner Family
DX: E11.65 Type 2 diabetes mellitus with hyperglycemia (principal); N20.0 Calculus of kidney

== ENCOUNTER → 2017-10-14 | Outpatient (CLI) | payer BC ==
[~2017-10-14] MED LIST changes: -LPT/20 PO; +LPT20 PO
[2017-10-14 19:22] LABS: ALBUMIN 3.4 gm/dl (3.4-5.0); ALKALINE PHOSPHATASE 99 U/L (45-117); ALT/SGPT 64 U/L (12-78); AST/SGOT 36 U/L (15-37); TOTAL PROTEIN 7.5 gm/dl (6.4-8.2)
== END | disposition home or self-care (01) ==
LOC: C.LAB 17:57
PROVIDERS: ATTEND Urology
DX: R79.89 Other specified abnormal findings of blood chemistry (principal)

== ENCOUNTER 2022-08-14 11:45 | Inpatient (IN) ==
[2022-08-14] MEDS ORDERED: KETOROLAC TROMETHAMINE 15 MG/ML VIAL IV STA (11:56)
[2022-08-14] MEDS ORDERED: ONDANSETRON INJ 2 MG/ML 2 ML VIAL IV STA (11:56)
[2022-08-14] MEDS ORDERED: CEFEPIME 2,000 MG/20 ML VIAL IV STA (11:56)
[2022-08-14] MEDS ORDERED: SODIUM CHLORIDE 0.9% 1000ML 1,000 ML IV SCH (12:00)
[2022-08-14] MEDS ORDERED: PROMETHAZINE 6.25 MG/50.25 ML BAG IV STA (12:09)
--- NOTE | 2022-08-14 12:14 | Emergency Department Note ---
Impression & Plan Sepsis, Leukocytosis, Elevated lactic acid level, Acute left flank pain, Pyelonephritis, Failure of outpatient treatment, Hypomagnesemia ED Provider Note NAME: MUNA CUMMINGS AGE: 61 SEX: F : 1960 ARRIVES VIA: Walk-In INFORMANT: [Patient] ED PROVIDER(S): [Jerson Herrera MD] CHIEF COMPLAINT: Vomiting, fever, flank pain HISTORY OF PRESENT ILLNESS: The patient is a 61-year-old female who presents with left flank pain and vomiting. She also had a low-grade fever today of 100 F. The patient did see urology about 1.5 weeks ago. She had a urine culture that grew gamma strep. She has been on 2 different antibiotics (first Keflex and then Macrobid) and is still having some difficulty. She does not have any urinary complaints but she has some left flank discomfort and some pain rating to the left lower quadrant. Today, the pain worsened to an 8/10 and she began vomiting. The patient is to have a cystoscopy on the of this month. She does have a history of previous kidney stones, diverticulitis and diabetes. PMHx/PSHx: See Below SOCIAL HISTORY: See Below. PHYSICAL EXAM: GENERAL: Patient is in no acute distress. HEENT: No acute trauma, normocephalic atraumatic, mucous membranes moist, no nasal congestion. NECK: No stridor, no adenopathy, no meningismus, trachea is midline. LUNGS: Clear to auscultation bilaterally, no wheeze, no rhonchi, breath sounds equal. HEART: Tachycardic, regular rhythm, no murmurs. ABDOMEN: Soft, mildly tender in the left upper quadrant, no peritonitis. EXTREMITIES: No cyanosis or edema, full range of motion of all the joints without pain or difficulty, no signs for acute trauma. NEUROLOGIC: Oriented x 3, no acute motor or sensory deficits, no focal weakness. SKIN: No rash, no jaundice, no diaphoresis. Back: No true flank discomfort to percussion DIFFERENTIAL DIAGNOSIS: Sepsis or bacteremia, pyelonephritis, UTI, ureteral stone, hydronephrosis, renal failure, dehydration, failed outpatient management, among others. EMERGENCY DEPARTMENT COURSE/PROCEDURES: Prior/Outside records reviewed: Urology outpatient notes. ECG per my interpretation: Indication was possible sepsis. The ECG shows a sinus tachycardia with a rate of 114. There is some nonspecific ST change. No ST elevation, no PVCs. The QTc is 446. Continuous Cardiac Monitoring per my interpretation: An order was placed for continuous cardiac monitoring. The monitor shows a rate of 122 with sinus tachycardia. Critical Care Note: I have personally spent 53 minutes of critical care time in the direct management of this patient. This includes bedside care, interpretation of diagnostic studies, and testing, discussion with consultants, patient, and family members, and other required patient management activities. This 53 minutes is in excess of all separately billable procedures. MEDICAL DECISION MAKING: There is a mild leukocytosis, this would be consistent with infection. There is a normal hemoglobin and platelet count. No renal failure, the BUN though was somewhat elevated consistent with potential dehydration. Glucose was high at 344. Magnesium is low at 1.4. Lactic acid level was elevated at over 4 consistent with dehydration and/or sepsis. No concerning liver enzyme e levation. Procalcitonin level was somewhat elevated, consistent with a bacterial infection. Urinalysis result is currently pending. The urine culture from about a week and a half ago did show gamma strep. Abdominal and pelvis CT does not show any ureteral obstruction or hydronephrosis. No evidence for acute surgical pathology by CT imaging. On exam, the patient was at times dry heaving, she was tachycardic. The patient was aggressively managed because of concerns for sepsis. She received IV saline, 2.5 L. She was then ordered for lactated Ringer's at 200 cc an hour. She received IV cefepime as empiric antibiotic coverage. She was given IV Zofran for nausea, IV Toradol for pain. She received IV magnesium for the lower magnesium value. The patient does feel improved, her nausea is controlled, her pain is controlled, her blood pressure is adequate. Her tachycardia is improving. I do think the patient requires a hospital stay. She does meet criteria for sepsis. I did speak with the patient and case management, the on-call hospitalist was consulted. DISPOSITION: The patient's presentation and findings warrant a hospital stay. Past Med/Surg History Medical History Adrenal adenoma Candidal intertrigo Community acquired pneumonia Congestion of nasal sinus COVID-19 (~12/30/21) Depression Diabetes mellitus type 2, uncontrolled, without complications Extrinsic asthma Fatty infiltration of liver Flank pain Gastroenteritis Gross hematuria History of diverticulitis of colon Hypercholesterolemia Hypertension Nephrolithiasis Obesity Psoriasis Type 2 diabetes mellitus, controlled UTI (urinary tract infection) Vaginitis Surgical History History of Hx of lithotripsy S/P cholecystectomy S/P tonsillectomy S/P tooth extraction Family History Mother Anxiety Cardiac disorder Depression Diabetes Hypertension Myocardial infarction Sarcoidosis Father Asthma Skin cancer Grandmother (Maternal) Colorectal cancer Social History Smoking Status: Never smoker Hx Alcohol Use: No Hx Substance Use: No Preferred Language: Swiss Communication Ability: Effective Visual Impairment: No Limitations Hearing Ability: Normal Beliefs That Will Affect Care: None marital status: Current Living Situation: Spouse current occupational status: employed current occupation: CPA Feels Safe at Home: Yes Childhood Exposure to Second-Hand Smoke: Yes caffeine: Yes during the past year weight has: remained stable Dental Care, Regularly: Yes Physical Activity Frequency: Does not Exercise Seatbelt Use: always Sunscreen Use: Yes Allergies Allergies Allergy/AdvReac Type Severity Reaction Status Date / Time ciprofloxacin [From Cipro] Allergy Mild Rash Verified 07/31/22 11:18 metronidazole [From Flagyl] Allergy Mild rash Verified 07/31/22 11:18 amoxicillin [From Augmentin] AdvReac Mild nausea Verified 07/31/22 11:18 vomiting clarithromycin AdvReac Mild NAUSEA Verified 07/31/22 11:18 clavulanic acid AdvReac Mild NAUSEA Verified 07/31/22 11:18 Home Meds Home Medications Medication Instructions Recorded Confirmed cholecalciferol (vitamin D3) 50 2,000 units PO DAILY 11/14/18 08/14/22 mcg (2,000 unit) tablet cyanocobalamin (vitamin B-12) 1,000 mcg PO DAILY #30 tabs 05/18/19 08/14/22 1,000 mcg tablet omeprazole magnesium 20 mg 20 mg PO DAILY PRN Acid Reflux 08/13/19 08/14/22 tablet,delayed release lancets 30 gauge (OneTouch Deljanes #25 ea 01/16/21 07/31/22 Lancets) insulin aspart U-100 100 unit/mL 40 unit subcut DAILY 04/25/22 08/14/22 (3 mL) subcutaneous pen (Novolog FlexPen U-100 Insulin aspart) insulin glargine U-300 conc 300 48 unit subcut HS 07/31/22 08/14/22 unit/mL (1.5 mL) subcutaneous pen (Toujeo SoloStar U-300 Insulin) Previous Rx's Medication Instructions Recorded aspirin 81 mg tablet,delayed 81 mg PO DAILY #30 tabs 11/14/18 release (Adult Low Dose Aspirin) FreeStyle Iqra 14 Day Sensor #6 ea 11/21/20 (flash glucose sensor) atorvastatin 20 mg tablet 20 mg PO HS #90 tabs 08/29/21 FreeStyle Iqra 2 Sensor (flash #2 ea 09/05/21 glucose sensor) lisinopril 2.5 mg tablet 2.5 mg PO DAILY #90 tabs 02/01/22 BD Ultra-Fine Janessa Pen Needle 32 #400 ea 02/19/22 gauge x 5/32" (pen needle, diabetic) metformin 500 mg tablet,extended 1,000 mg PO BID #180 tabs 02/22/22 release 24 hr blood sugar diagnostic (OneTouch #100 ea 04/17/22 Verio test strips) baclofen 5 mg tablet 5 mg PO TID PRN muscle spasm #30 07/31/22 tabs escitalopram oxalate 20 mg tablet 20 mg PO DAILY #30 tabs 08/13/22 Results & Data (ED) Vital Signs Vital Signs - 24 hr 08/14/22 11:51 08/14/22 12:40 08/14/22 11:56 Temperature 36.9 C Temperature Source Oral Pulse Rate 129 H 122 H 117 H Pulse Rhythm Regular Respiratory Rate 16 21 Respiratory Effort / Characteristics Non-Labored Spontaneous Respiratory Depth Normal Blood Pressure 137/81 Blood Pressure Mean 99 Pulse Oximetry 97 98 Oxygen Delivery Method Room Air Room Air Sepsis Recent Fever Within 48 Hours No Sepsis New/Unexplained Change in Mental Status No Sepsis Action Taken by Nursing No Action Required Home Medications Current Medication List: was personally reviewed by me Laboratory Data Attestation: I reviewed the patient's lab results. 08/14/22 12:35 08/14/22 12:35 Lab Results 08/14/22 08/14/22 08/14/22 Range/Units 12:33 12:35 12:35 WBC 13.10 H (4.8-10.8) K/ul RBC 5.02 (4.20-5.40) M/uL Hgb 15.0 (12.0-16.0) g/dl Hct 44.8 (37.0-47.0) % MCV 89.2 (80.0-100.0) fL MCH 29.9 (25.0-34.0) pg MCHC 33.5 (32.0-36.0) g/dL RDW Std Deviation 43.2 (36.4-46.3) fL RDW Coeff of Aly 13.4 (11.5-14.5) % Plt Count 311 (130-400) K/uL MPV 10.7 (9.4-12.4) fL Neutrophils % (Manual) 89 % Lymphocytes % (Manual) 8 % Monocytes % (Manual) 2 % Eosinophils % (Manual) 1 % Myelocytes % (Man) 1 % Neutrophils # (Manual) 11.66 H (1.40-6.50) K/uL Total Absolute Neuts 11.66 H (1.4-6.5) K/uL Lymphocytes # (Manual) 1.05 L (1.2-3.4) K/uL Total Abs Lymphocytes 1.05 L (1.2-3.4) K/uL Monocytes # (Manual) 0.26 (0.11-0.59) K/uL Eosinophils # (Manual) 0.13 (0-0.50) K/uL Myelocytes # (Manual) 0.13 H (0-0) K/uL Platelet Estimate Normal (Normal) Sodium 138 (136-145) mmol/L Potassium 4.6 (3.5-5.1) mmol/L Chloride 104 (98-107) mmol/L Carbon Dioxide 21 (21-32) mmol/L Anion Gap 13 H (3-11) BUN 28 H (6-23) mg/dl Creatinine 1.17 (0.6-1.2) mg/dl Est Cr Clr Drug Dosing 44.3 ml/min Est GFR ( Amer) 59.1 ml/min Est GFR (Non-Af Amer) 51.0 ml/min BUN/Creatinine Ratio 23.9 H (10-20) Glucose 344 H* (70-99(Fasting)) mg/dl Lactate 4.7 H* (0.4-2.0) mmol/L Calcium 9.9 (8.5-10.1) mg/dl Magnesium 1.4 L (1.7-2.4) mg/dl Total Bilirubin 0.6 (0.2-1.0) mg/dl Direct Bilirubin TNP AST 21 (13-39) U/L ALT 27 (7-52) U/L Alkaline Phosphatase 80 (34-104) U/L Total Protein 7.6 (6.0-8.3) gm/dl Albumin 4.3 (3.4-5.0) gm/dl Procalcitonin (0-0.5) ng/ml 08/14/22 Range/Units 12:35 WBC (4.8-10.8) K/ul RBC (4.20-5.40) M/uL Hgb (12.0-16.0) g/dl Hct (37.0-47.0) % MCV (80.0-100.0) fL MCH (25.0-34.0) pg MCHC (32.0-36.0) g/dL RDW Std Deviation (36.4-46.3) fL RDW Coeff of Aly (11.5-14.5) % Plt Count (130-400) K/uL MPV (9.4-12.4) fL Neutrophils % (Manual) % Lymphocytes % (Manual) % Monocytes % (Manual) % Eosinophils % (Manual) % Myelocytes % (Man) % Neutrophils # (Manual) (1.40-6.50) K/uL Total Absolute Neuts (1.4-6.5) K/uL Lymphocytes # (Manual) (1.2-3.4) K/uL Total Abs Lymphocytes (1.2-3.4) K/uL Monocytes # (Manual) (0.11-0.59) K/uL Eosinophils # (Manual) (0-0.50) K/uL Myelocytes # (Manual) (0-0) K/uL Platelet Estimate (Normal) Sodium (136-145) mmol/L Potassium (3.5-5.1) mmol/L Chloride (98-107) mmol/L Carbon Dioxide (21-32) mmol/L Anion Gap (3-11) BUN (6-23) mg/dl Creatinine (0.6-1.2) mg/dl Est Cr Clr Drug Dosing ml/min Est GFR ( Amer) ml/min Est GFR (Non-Af Amer) ml/min BUN/Creatinine Ratio (10-20) Glucose (70-99(Fasting)) mg/dl Lactate (0.4-2.0) mmol/L Calcium (8.5-10.1) mg/dl Magnesium (1.7-2.4) mg/dl Total Bilirubin (0.2-1.0) mg/dl Direct Bilirubin AST (13-39) U/L ALT (7-52) U/L Alkaline Phosphatase (34-104) U/L Total Protein (6.0-8.3) gm/dl Albumin (3.4-5.0) gm/dl Procalcitonin 0.86 H (0-0.5) ng/ml Administered Medications Magnesium Sulfate/Dextrose (Magnesium Sulfate / D5w) 1 gm in 100 mls @ 100 mls/hr IV Q1H SAHARA Stop: 08/14/22 15:52 Last Admin: 08/14/22 14:43 Dose: 100 mls/hr Documented By: HG Discontinued Medications Cefepime HCl (Maxipime) 2,000 mg in 20 mls @ 5 mls/min IV NOW STA; Protocol Stop: 08/14/22 11:59 Last Admin: 08/14/22 12:29 Dose: 5 mls/min Documented By: HG Sodium Chloride (Nss 1000ml) 1,000 mls @ 999 mls/hr IV .Q1H1M SAHARA Stop: 08/14/22 13:00 Last Infusion: 08/14/22 13:40 Dose: 0 mls/hr Documented By: Admin: 08/14/22 12:25 Dose: 999 mls/hr Documented By: HG Sodium Chloride (Nss 1000ml) 1,000 mls @ 999 mls/hr IV .Q1H1M ONE Stop: 08/14/22 13:44 Last Admin: 08/14/22 12:50 Dose: 999 mls/hr Documented By: HG Sodium Chloride (Nss 1000ml) 500 mls @ 999 mls/hr IV .Q31M ONE Stop: 08/14/22 13:14 Last Infusion: 08/14/22 14:31 Dose: 0 mls/hr Documented By: Admin: 08/14/22 12:58 Dose: 999 mls/hr Documented By: LINO Ketorolac Tromethamine (Ketorolac Tromethamine 15 Mg/Ml Vial) 15 mg IV NOW STA Stop: 08/14/22 11:57 Last Admin: 08/14/22 12:22 Dose: 15 mg Documented By: LINO Ondansetron HCl (Ondansetron Inj 2 Mg/Ml 2 Ml Vial) 4 mg IV NOW STA Stop: 08/14/22 11:57 Last Admin: 08/14/22 12:22 Dose: 4 mg Documented By: LINO Imaging Data Radiologist's Impression: Abdomen/Pelvis CT 08/14/22 11:56 CT abd pelvis wo con CLINICAL HISTORY: L flank pain TECHNIQUE: Helical axial images of the abdomen and pelvis were obtained. Automated dose lowering techniques and/or adjustment according to patient size were utilized for this exam. This exam was performed without intravenous contrast. CT DOSE: 854.18 mGy.cm COMPARISON: Comparison is made to CT abdomen pelvis 07/27/2022 FINDINGS: Lower chest: No acute abnormality. Liver: Unremarkable. No focal lesions are seen. Gallbladder and biliary tree: Patient is status post cholecystectomy. No intra- or extrahepatic biliary ductal dilation. Pancreas: Unremarkable, no focal lesions. Spleen: Unremarkable. Adrenals: Left adrenal lipid rich adenoma measures 23 mm. Nonobstructive stones are seen on the left. There is no evidence of hydroureter or hydronephrosis. A few parapelvic cysts are seen. Kidneys and ureters: Unremarkable. Bladder: Unremarkable. Reproductive organs: Unremarkable. Bowel: Diverticulosis is seen without evidence of diverticulitis. A hiatal her veronica is seen. The appendix is normal. Lymph nodes Retroperitoneal: Unremarkable. Pelvic: Unremarkable. Mesenteric: Unremarkable. Peritoneum: Normal. Vessels: Unremarkable. Abdominal wall: A fat-containing umbilical hernia is seen. Bones: Unremarkable. IMPRESSION: 1. No acute abnormalities and in particular no evidence of obstructive nephrolithiasis. 2. Diverticulosis without diverticulitis. 3. Nonobstructive nephrolithiasis is noted. 4. Lipid rich left adrenal adenoma. 5. Status post cholecystectomy. ACT 112: Negative or not required by law. Electronically signed by: Tian Armendariz M.D. 08/14/2022 1:24 PM Discharge Plan Visit Data Chief Complaint: Urinary Symptoms Stated Complaint: UTI SYMPTOMS ED Provider: Jerson Herrera Discharge Problem: Sepsis, Leukocytosis, Elevated lactic acid level, Acute left flank pain, Pyelonephritis, Failure of outpatient treatment, Hypomagnesemia Patient Disposition: Admitted As Inpatient Condition: Fair Forms Stand Alone Forms: My [facility] [employer] Prescriptions Prescriptions: No Action (DME) FreeStyle Iqra 14 Day Sensor Kit See Rx Instructions [id number] .MEDSUPPLY Qty: 6 3RF Rx Instructions: replace sensor every 14 days atorvastatin 20 mg tablet 20 mg PO HS Qty: 90 3RF lisinopril 2.5 mg tablet 2.5 mg PO DAILY Qty: 90 3RF (DME) pen needle, diabetic [BD Ultra-Fine Janessa Pen Needle] 32 gauge x 5/32" needle See Rx Instructions .ROUTE .MEDSUPPLY Qty: 400 3RF Rx Instructions: Four times a day (DME) OneTouch Verio test strips Strip See Rx Instructions .ROUTE .MEDSUPPLY Qty: 100 1RF Rx Instructions: Test blood sugar 1-2 times a day escitalopram oxalate 20 mg tablet 20 mg PO DAILY Qty: 30 2RF cholecalciferol (vitamin D3) 2,000 unit tablet 2,000 units PO DAILY aspirin [Adult Low Dose Aspirin] 81 mg tablet,delayed release (DR/EC) 81 mg PO DAILY Qty: 30 2RF cyanocobalamin (vitamin B-12) 1,000 mcg tablet 1,000 mcg PO DAILY Qty: 30 omeprazole magnesium 20 mg tablet,delayed release (DR/EC) 20 mg PO DAILY PRN (Reason: Acid Reflux) (DME) FreeStyle Iqra 2 Sensor Kit See Rx Instructions miscellaneous .MEDSUPPLY Qty: 2 11RF Rx Instructions: Change q 14 days to monitor sugar metformin 500 mg tablet extended release 24 hr 1,000 mg PO BID Qty: 180 3RF insulin aspart U-100 [Novolog FlexPen U-100 Insulin] 100 unit/mL (3 mL) insulin pen 40 unit SQ DAILY Rx Instructions: inject as directed with meals to a TDD of 40 units (DME) lancets [OneTouch Delica Lancets] 30 gauge misc See Rx Instructions .ROUTE .MEDSUPPLY Qty: 25 Rx Instructions: Test blood sugar 1-2 times a day Henri Coleman U-300 Insulin 300 unit/mL (1.5 mL) insulin pen 48 unit SQ HS baclofen 5 mg tablet 5 mg PO TID PRN (Reason: muscle spasm) Qty: 30 0RF Referrals Referrals: Yin Mac DO [Primary Care Provider] - Sepsis Qualifiers: Sepsis type: sepsis due to unspecified organism Sepsis acute organ dysfunction status: without acute organ dysfunction Qualified Code(s): A41.9 - Sepsis, unspecified organism Leukocytosis Qualifiers: Leukocytosis type: unspecified Qualified Code(s): D72.829 - Elevated white blood cell count, unspecified
[2022-08-14] MEDS ORDERED: SODIUM CHLORIDE 0.9% 1000ML 1,000 ML IV ONE (12:44)
[2022-08-14] MEDS ORDERED: SODIUM CHLORIDE 0.9% 1000ML 500 ML IV ONE (12:44)
--- NOTE | 2022-08-14 13:05 | Electrocardiogram Report ---
Test Reason : Blood Pressure : / mmHG Vent. Rate : 114 BPM Atrial Rate : 114 BPM P-R Int : 136 ms QRS Dur : 072 ms QT Int : 324 ms P-R-T Axes : 053 009 040 degrees QTc Int : 446 ms Sinus tachycardia Poor R wave progression, consider anterior LA vs. lead placement vs. LVH Nonspecific T wave abnormality Anterolateral leads Abnormal ECG When compared with ECG of 30-JUL-2016 09:22, Nonspecific T wave abnormality now evident in Anterolateral leads Confirmed by Danyel Troy ([id number]) on 08/14/2022 1:05:03 PM Referred By: REFERRED SELF Confirmed By:Danyel Troy
--- NOTE | 2022-08-14 13:26 | CT Scan Report ---
CT abd pelvis wo con CLINICAL HISTORY: L flank pain TECHNIQUE: Helical axial images of the abdomen and pelvis were obtained. Automated dose lowering tech niques and/or adjustment according to patient size were utilized for this exam. This exam was perfor med without intravenous contrast. CT DOSE: 854.18 mGy.cm COMPARISON: Comparison is made to CT abdomen pelvis 07/27/2022 FINDINGS: Lower chest: No acute abnormality. Liver: Unremarkable. No focal lesions are seen. Gallbladder and biliary tree: Patient is status post cholecystectomy. No intra- or extrahepatic bilia ry ductal dilation. Pancreas: Unremarkable, no focal lesions. Spleen: Unremarkable. Adrenals: Left adrenal lipid rich adenoma measures 23 mm. Nonobstructive stones are seen on the left. There is no evidence of hydroureter or hydronephrosis. A few parapelvic cysts are seen. Kidneys and ureters: Unremarkable. Bladder: Unremarkable. Reproductive organs: Unremarkable. Bowel: Diverticulosis is seen without evidence of diverticulitis. A hiatal hernia is seen. The append ix is normal. Lymph nodes Retroperitoneal: Unremarkable. Pelvic: Unremarkable. Mesenteric: Unremarkable. Peritoneum: Normal. Vessels: Unremarkable. Abdominal wall: A fat-containing umbilical hernia is seen. Bones: Unremarkable. IMPRESSION: 1. No acute abnormalities and in particular no evidence of obstructive nephrolithiasis. 2. Diverticulosis without diverticulitis. 3. Nonobstructive nephrolithiasis is noted. 4. Lipid rich left adrenal adenoma. 5. Status post cholecystectomy. ACT 112: Negative or not required by law. Electronically signed by: Tian Armendariz M.D. 08/14/2022 1:24 PM
[2022-08-14 13:44] LABS: Alanine Aminotransferase 27 U/L (7-52); Albumin Level 4.3 gm/dl (3.4-5.0); Alkaline Phosphatase 80 U/L (34-104); Anion Gap 13 (3-11); Aspartate Aminotransferase 21 U/L (13-39); BUN Creatinine Ratio 23.9 (10-20); Bilirubin,Total 0.6 mg/dl (0.2-1.0); Blood Urea Nitrogen 28 mg/dl (6-23); Calcium 9.9 mg/dl (8.5-10.1); Carbon Dioxide 21 mmol/L (21-32); Chloride 104 mmol/L (98-107); Creatinine Clr Calc Pharmacy 44.3 ml/min; Est GFR (African American) 59.1 ml/min; Glucose 344 mg/dl (70-99(Fasting)); Magnesium 1.4 mg/dl (1.7-2.4); Potassium 4.6 mmol/L (3.5-5.1); Sodium 138 mmol/L (136-145); Total Protein 7.6 gm/dl (6.0-8.3)
[2022-08-14 14:32] LABS: Hematocrit (blood only) 44.8 % (37.0-47.0); Mean Corpuscular Hemoglobin 29.9 pg (25.0-34.0); Mean Corpuscular Hgb Conc 33.5 g/dL (32.0-36.0); Mean Corpuscular Volume 89.2 fL (80.0-100.0); Mean Platelet Volume 10.7 fL (9.4-12.4); Platelet Count 311 K/uL (130-400); RDW Coefficient of Variation 13.4 % (11.5-14.5); RDW Standard Deviation 43.2 fL (36.4-46.3); Red Blood Count 5.02 M/uL (4.20-5.40)
[2022-08-14 14:33] LABS: ALC (manual) 1.05 K/uL (1.2-3.4); ANC (manual) 11.66 K/uL (1.4-6.5); Eosinophils # (manual) 0.13 K/uL (0-0.50); Eosinophils % (manual) 1 %; Lymphocytes # (manual) 1.05 K/uL (1.2-3.4); Lymphocytes % (manual) 8 %; Monocytes # (manual) 0.26 K/uL (0.11-0.59); Monocytes % (manual) 2 %; Myelocytes # (manual) 0.13 K/uL (0-0); Myelocytes % (manual) 1 %; Neutrophils # (manual) 11.66 K/uL (1.40-6.50); Neutrophils % (manual) 89 %; Platelet Estimate Normal (Normal)
[2022-08-14] MEDS ORDERED: LACTATED RINGER'S 1,000 ML IV STA (14:38)
[2022-08-14] MEDS: MAGNESIUM SULFATE / D5W 1 GM/100 ML BAG IV SCH ×4 (14:43→20:04)
[2022-08-14 15:06] LABS: Appearance Urine Clear (Clear); Bacteria Urine Automated Negative (Negative); Bilirubin Urine Negative (Negative); Blood Urine Negative (Negative); Color Urine Yellow; Glucose Urine UA 2+ (Negative); Ketones Urine Trace (Negative); Leukocyte Esterase Urine 2+ (Negative); Nitrite Urine Negative (Negative); Protein Urine 1+ (Negative); RBC Urine Automated 0-4 /hpf (0-4); Urobilinogen Urine Negative (Negative); WBC Urine Automated >30 /hpf (0-5)
--- NOTE | 2022-08-14 15:37 | History & Physical Report ---
Date of Service August 14, 2022 Assessment & Plan (1) Sepsis: Plan: Sepsis,? UTI origin Patiently recently treated with Keflex and then Macrobid for gamma strep UTI as outpatient Patient with left flank pain which was improving, this morning woke up with sudden nausea/vomiting and liquid yellow diarrhea CTA/P: IMPRESSION:1. No acute abnormalities and in particular no evidence of obstructive nephrolithiasis. 2. Diverticulosis without diverticulitis. 3. No nobstructive nephrolithiasis is noted.4. Lipid rich left adrenal adenoma.5. Status post cholecystectomy. Etiology includes treatment failure of Macrobid/Keflex for UTI; however patient was slowly improving. Given liquid diarrhea and more GI/vomiting symptoms will check PCR and C. difficile. Continue empiric cefepime at this time for possible UTI Lactate elevated, downtrending. Continue 500 cc additional Normosol Magnesium repleted Procalcitonin elevated at 0.86 Nausea improved following Phenergan Blood culture, urine culture pending Type II DM Based on home basal we will do Lantus 24 twice daily, CF 15, carb ratio 6. Pharmacy consulted due to vast difference between weight-based dosing estimate Goal BSG [id number] Glucose checks AC/at bedtime DM diet Asthma No wheezing on admission Hypertension Continue lisinopril, adequately controlled on admission GERD Convert omeprazole to pantoprazole Anxiety Continue Lexapro Hyperlipidemia Continue atorvastatin DVT prophylaxis: Lovenox Diet: DM Disposition: Telemetry for sepsis CODE STATUS: Full code, discussed with patient at bedside (2) Elevated lactic acid level: (3) Acute left flank pain: (4) Pyelonephritis: (5) Failure of outpatient treatment: (6) Hypomagnesemia: (7) Type 2 diabetes mellitus, controlled: History of Present Illness Primary Care Provider: Yin Mac DO 61-year-old female with nausea/vomiting/fever. Was seen by urology with gamma strep UTI and was placed on Keflex/Macrobid. Patient continues to have left flank pain radiating into her abdomen with pain worsening to 8 out of 10. Is a leukocytosis of 13 on admission, creatinine baseline is less than 1.2, admitting creatinine is 1.17. Elevated BSG 344. Elevated BUN/creatinine ratio consistent with volume depletion Nanette reports she has had flank pain back in June with elevated blood sugars. Saw Dr. Mac's PA at that time and had a UA which was positive. Was placed on Keflex. Her BSG have not gotten better, and continued to have abdominal pain. Was seen for followup and repeat UA and was placed on Macrobid. Was referred for urology for recurrent UTI. Dr. Lau recommended a CT. Saw a cyst on her R kidney which remained unchanged. +stones but no obstructive nephrolithiasis. Recommended a cystoscopy which was scheduled for 08/2022. This mornign Nanette felt she was suddenly much worse. +diarrhea, +vomiting, fever of 99-100*F. Was recommended to go to the ER if she worsened so she came in. After being on macrobid she had felt better up until today, and sugars were a little better but did not get completely back to baseline but did feel like she had improved a bit just not completely and pain hadn't fully disappointed. At assessment no nausea/vomiting Last BM was this morning. Several times per day. No blood, yellow in color. Completely liquid. No melena Urine has been darker/coke colored last day or two. No shortness of breath No cough Sweaty/feverish this AM /w emesis every 30-40 minutes. No blood or bile in emesis/ No chest pain or chest pressure No dysuria Medical History: Reviewed Medications: Reviewed Surgical History: Reviewed Family history: Reviewed Allergies: Reviewed. Rash with cipro/flagyl, has tolerated cipro alone before Social History: No tobacco product use, no alcohol. Code Status: FUll Code Magnesium 1.4, repleted Procalcitonin 0.86 UA pending Received Toradol, cefepime, saline, Phenergan on admission CTA/P: IMPRESSION: 1. No acute abnormalities and in particular no evidence of obstructive nephrolithiasis. 2. Diverticulosis without diverticulitis. 3. Nonobstructive nephrolithiasis is noted. 4. Lipid rich left adrenal adenoma. 5. Status post cholecystectomy. Based on home basal requirements: Lantus 24 twice daily, CF 15, carb ratio 6 Pharmacy glycemic consulted due to discrepancy between weight-based and basal home dosing UC pending BC pending Empiric cefepime continued, outpatient UA positive for gamma strep. Keflex/Macrobid with high rates of failure, will convert to cefepime while inpatient Lactate was elevated at 3.4, is downtrending. Elevated BUN/creatinine ratio Allergies Allergy/AdvReac Type Severity Reaction Status Date / Time ciprofloxacin [From Cipro] Allergy Mild Rash Verified 07/31/22 11:18 metronidazole [From Flagyl] Allergy Mild rash Verified 07/31/22 11:18 amoxicillin [From Augmentin] AdvReac Mild nausea Verified 07/31/22 11:18 vomiting clarithromycin AdvReac Mild NAUSEA Verified 07/31/22 11:18 clavulanic acid AdvReac Mild NAUSEA Verified 07/31/22 11:18 Home Medications Medication Instructions Recorded Confirmed Type aspirin 81 mg tablet,delayed 81 mg PO DAILY #30 tabs 11/14/18 08/14/22 Rx release (Adult Low Dose Aspirin) cholecalciferol (vitamin D3) 50 2,000 units PO DAILY 11/14/18 08/14/22 History mcg (2,000 unit) tablet cyanocobalamin (vitamin B-12) 1,000 mcg PO DAILY #30 tabs 05/18/19 08/14/22 History 1,000 mcg tablet omeprazole magnesium 20 mg 20 mg PO DAILY PRN Acid Reflux 08/13/19 08/14/22 History tablet,delayed release FreeStyle Iqra 14 Day Sensor #6 ea 11/21/20 07/31/22 Rx (flash glucose sensor) lancets 30 gauge (OneTouch Delica #25 ea 01/16/21 07/31/22 History Lancets) atorvastatin 20 mg tablet 20 mg PO HS #90 tabs 08/29/21 08/14/22 Rx FreeStyle Iqra 2 Sensor (flash #2 ea 09/05/21 07/31/22 Rx glucose sensor) lisinopril 2.5 mg tablet 2.5 mg PO DAILY #90 tabs 02/01/22 08/14/22 Rx BD Ultra-Fine Janessa Pen Needle 32 #400 ea 02/19/22 07/31/22 Rx gauge x 5/32" (pen needle, diabetic) metformin 500 mg tablet,extended 1,000 mg PO BID #180 tabs 02/22/22 08/14/22 Rx release 24 hr blood sugar diagnostic (Planet SohoTouch #100 ea 04/17/22 07/31/22 Rx Verio test strips) insulin aspart U-100 100 unit/mL 40 unit subcut DAILY 04/25/22 08/14/22 History (3 mL) subcutaneous pen (Novolog FlexPen U-100 Insulin aspart) baclofen 5 mg tablet 5 mg PO TID PRN muscle spasm #30 07/31/22 08/14/22 Rx tabs insulin glargine U-300 conc 300 48 unit subcut HS 07/31/22 08/14/22 History unit/mL (1.5 mL) subcutaneous pen (Toujeo SoloStar U-300 Insulin) escitalopram oxalate 20 mg tablet 20 mg PO DAILY #30 tabs 08/13/22 08/14/22 Rx Past Med/Surg History Medical History Adrenal adenoma Candidal intertrigo Community acquired pneumonia Congestion of nasal sinus COVID-19 (~12/30/21) Depression Diabetes mellitus type 2, uncontrolled, without complications Extrinsic asthma Fatty infiltration of liver Flank pain Gastroenteritis Gross hematuria History of diverticulitis of colon Hypercholesterolemia Hypertension Nephrolithiasis Obesity Psoriasis Type 2 diabetes mellitus, controlled UTI (urinary tract infection) Vaginitis Surgical History History of Hx of lithotripsy S/P cholecystectomy S/P tonsillectomy S/P tooth extraction Family History Mother Anxiety Cardiac disorder Depression Diabetes Hypertension Myocardial infarction Sarcoidosis Father Asthma Skin cancer Grandmother (Maternal) Colorectal cancer Social History Smoking Status: Never smoker Hx Alcohol Use: No Hx Substance Use: No Preferred Language: Korean Communication Ability: Effective Visual Impairment: No Limitations Hearing Ability: Normal Beliefs That Will Affect Care: None marital status: Current Living Situation: Spouse current occupational status: employed current occupation: CPA Feels Safe at Home: Yes Childhood Exposure to Second-Hand Smoke: Yes caffeine: Yes during the past year weight has: remained stable Dental Care, Regularly: Yes Physical Activity Frequency: Does not Exercise Seatbelt Use: always Sunscreen Use: Yes Review of Systems Review of Systems: All systems reviewed & are unremarkable except as noted in HPI & below Physical Exam Physical Exam: General: A&Ox3. NAD. Cooperative. HEENT: Atraumatic, normocephalic. Pulm: CTAB A&P. -wheezes, -rales, -rhonchi. Symmetrical chest rise. No increased work of breathing. No respiratory distress. Cardiac: Tachycardic, regular. Rate around 100 at assessment, -mrg. Radial pulses intact and symmetrical. Abdominal: mild tenderness not worsened with palpation., nondistended, soft. BS present. No rebound. No CVA tenderness at admission. Extremities: Warm, dry. Moves all extremities equally. Sensation intact in hands and feet. Results & Data Results & Data ([facility]) Vital Signs (Past 12 Hours) Vital Signs Temp Pulse Resp BP Pulse Ox O2 Del Method 08/14/22 11:56 117 H 21 98 Room Air 08/14/22 12:40 122 H 08/14/22 11:51 36.9 C 129 H 16 137/81 97 Room Air PG Care Time/CCT Total # of Minutes Spent Total Time Spent with Patient: Total time spent is greater than 50% in coordination of care (as documented) at patient's floor/unit and/or counseling patient: Coding Level of Care Code 89854 INT INP/OBS CARE 3/75MIN Diagnoses Sepsis A41.9 Sepsis acute organ dysfunction status: without acute organ dysfunction Sepsis type: sepsis due to unspecified organism Elevated lactic acid level R79.89 Acute left flank pain R10.9 Pyelonephritis N12 Failure of outpatient treatment Z78.9 Hypomagnesemia E83.42 Type 2 diabetes mellitus, controlled E11.9 (1) Sepsis Sepsis acute organ dysfunction status: without acute organ dysfunction Sepsis type: sepsis due to unspecified organism Qualified Code(s): A41.9 - Sepsis, unspecified organism
[2022-08-14] MEDS ORDERED: DEXTROSE 50% 50 ML SYRINGE IV PRN (16:55)
[2022-08-14] MEDS ORDERED: BACLOFEN 10 MG TAB PO PRN (16:55)
[2022-08-14] MEDS ORDERED: GLUCOSE 10 TAB/TUBE PO PRN (16:55)
[2022-08-14] MEDS ORDERED: GLUCAGON FOR INJ 1 MG VIAL SQ PRN (16:55)
[2022-08-14] MEDS ORDERED: CARBOHYDRATES FOR HYPOGLYCEMIA PO PRN (16:55)
[2022-08-14] MEDS ORDERED: PHARMACY GLYCEMIC MGMT CONSULT PRN (16:55)
[2022-08-14] MEDS ORDERED: GLUCOSE 40% GEL 15 GM TUBE PO PRN (16:55)
[2022-08-14] MEDS ORDERED: LANTUS PER UNIT CHARGE SQ ONE ×2 (18:00)
[2022-08-14] MEDS ORDERED: dilTIAZem HCl 5 MG/ML 5 ML VIAL IV STA (18:12)
[2022-08-14] MEDS ORDERED: METOPROLOL TARTRATE 1 MG/ML VIAL IV STA (18:12)
[2022-08-14] MEDS: INSULIN ASPART PER UNIT SC SCH ×2 (18:41→20:05)
[2022-08-14] MEDS: NORMOSOL-R 1,000 ML IV SCH (18:42)
[2022-08-14] MEDS: ENOXAPARIN INJ 40 MG/0.4 ML SYR SQ SCH (18:44)
[2022-08-14] MEDS: ATORVASTATIN 20 MG TAB PO SCH (20:05)
[2022-08-14] MEDS: CEFEPIME 2,000 MG in SYRINGE 0 ML IV SCH (22:20)
[2022-08-15] MEDS: INSULIN ASPART PER UNIT SC SCH ×6 (00:19→20:30)
[2022-08-15] MEDS: NORMOSOL-R 1,000 ML IV SCH (00:19)
[2022-08-15] MEDS: ACETAMINOPHEN 325 MG TAB PO PRN ×2 (00:54→19:45)
[2022-08-15] MEDS: ENOXAPARIN INJ 40 MG/0.4 ML SYR SQ SCH (04:57)
[2022-08-15] MEDS: CEFEPIME 2,000 MG in SYRINGE 0 ML IV SCH ×2 (04:58→18:16)
[2022-08-15 06:35] LABS: BUN Creatinine Ratio 21.3 (10-20); Calcium 7.7 mg/dl (8.5-10.1); Creatinine Clr Calc Pharmacy 55.8 ml/min; Est GFR (Non-African American) 66.4 ml/min; Potassium 4.6 mmol/L (3.5-5.1)
[2022-08-15 07:10] LABS: Basophils # (auto) 0.03 K/uL (0-0.2); Basophils % (auto) 0.4 %; Eosinophils # (auto) 0.12 K/uL (0-0.50); Eosinophils % (auto) 1.7 %; Hematocrit (blood only) 35.7 % (37.0-47.0); Hemoglobin 12.1 g/dl (12.0-16.0); Immature Granulocytes # (auto) 0.04 K/uL (0.01-0.20); Immature Granulocytes % (auto) 0.6 %; Lymphocytes # (auto) 0.55 K/uL (1.2-3.4); Lymphocytes % (auto) 7.6 %; Mean Corpuscular Hgb Conc 33.9 g/dL (32.0-36.0); Mean Corpuscular Volume 88.4 fL (80.0-100.0); Mean Platelet Volume 10.7 fL (9.4-12.4); Monocytes # (auto) 0.51 K/uL (0.11-0.59); Monocytes % (auto) 7.1 %; Neutrophils # (auto) 5.95 K/uL (1.40-6.50); Neutrophils % (auto) 82.6 %; Platelet Count 198 K/uL (130-400); RDW Coefficient of Variation 13.6 % (11.5-14.5); RDW Standard Deviation 44.3 fL (36.4-46.3); Red Blood Count 4.04 M/uL (4.20-5.40)
[2022-08-15] MEDS: ASPIRIN 81 MG ECTAB PO SCH (08:05)
[2022-08-15] MEDS: lisinopril 2.5 MG TAB PO SCH (08:05)
[2022-08-15] MEDS: PANTOprazole 40 MG TAB PO SCH (08:05)
[2022-08-15 08:08] LABS: Estimated Average Glucose 212 mg/dl
[2022-08-15] MEDS ORDERED: Nursing to Pharmacy Communication SCH ×2 (08:15→08:45)
[2022-08-15] MEDS ORDERED: ESCITALOPRAM OXALATE 20 MG TAB PO SCH ×2 (09:00→21:00)
[2022-08-15 12:43] LABS: A calco-baum cmplx NotReported Not Detected (NotDetected); Bact fragilis Not Reported Not Detected (NotDetected); C auris Not Reported Not Detected (NotDetected); Calbicans Not Reported Not Detected (NotDetected); Candida glabrata Not Reported Not Detected (NotDetected); Candida krusei Not Reported Not Detected (NotDetected); Cneoformans/gatti Not Reported Not Detected (NotDetected); Cparapsilosis Not Reported Not Detected (NotDetected); Ctropicalis Not Reported Not Detected (NotDetected); E cloacae compx Not Reported Not Detected (NotDetected); Efaecalis Not Reported Not Detected (NotDetected); Efaecium Not Reported Not Detected (NotDetected); Enterobacterales Not Reported Not Detected (NotDetected); Escherichia coli Not Reported Not Detected (NotDetected); H influenzae Not Reported Not Detected (NotDetected); K aerogenes Not Reported Not Detected (NotDetected); Koxytoca Not Reported Not Detected (NotDetected); Kpneumoniae grp Not Reported Not Detected (NotDetected); Lmonocyt Not Reported Not Detected (NotDetected); N meningitidis Not Reported Not Detected (NotDetected); P aeruginosa Not Reported Not Detected (NotDetected); Proteus spp Not Reported Not Detected (NotDetected); Salmonella spp Not Reported Not Detected (NotDetected); Smarcescens Not Reported Not Detected (NotDetected); Staph lugdunensis Not Reported Not Detected (NotDetected); Staph spp. Not Reported DETECTED (NotDetected); Staphaureus Not Reported Not Detected (NotDetected); Staphepi Not Reported DETECTED (NotDetected); Staphylococcus epidermidis DETECTED (NotDetected); Staphylococcus spp. DETECTED (NotDetected); Stenmaltophilia Not Reported Not Detected (NotDetected); Strep agal(GrpB) Not Reported Not Detected (NotDetected); Strep pneum Not Reported Not Detected (NotDetected); Strep pyog (GrpA) Not Reported Not Detected (NotDetected); Strep spp Not Reported Not Detected (NotDetected); mecAC Resistant Gene DETECTED (NotDetected)
--- NOTE | 2022-08-15 14:26 | Pharmacy Report ---
Pharmacy Glycemic Short Note 2 - Date of Service August 15, 2022 - Glycemic Short BSG Results (Last 24 hours): 08/14/22 08/14/22 08/14/22 15:35 18:37 19:53 Glucose POC Glucose 237 H 206 H 184 H 08/15/22 08/15/22 08/15/22 00:15 04:44 05:34 Glucose 125 H POC Glucose 107 H 103 H 08/15/22 08/15/22 08/15/22 07:14 07:31 11:06 Glucose POC Glucose 131 H 114 H 155 H OUTPATIENT ANTIDIABETIC REGIMEN: * Glargine 48 units Q HS * Aspart 10-15 units w/ B + 10-15 units w/ L + 14-16 units w/ D * Metformin 1gm PO BID * A1c = 9% 08/15/22 ASSESSMENT: * Poorly controlled type 2 diabetic admitted for sepsis from possible urinary source * Patient was initiated on basal / bolus SQ regimen last evening * BSGs well controlled with current orders * Fasting BSG 131 this AM w/ 35 units Lantus on board - will taper dose back slightly as fasting BSG may fall with repeat dosing * Post-prandial BSGs well controlled with current CF and CR PLAN FOR INPATIENT GLYCEMIC CONTROL: * Hold outpatient oral diabetes medications (metformin) * Basal insulin * Lantus 30 units SQ HS * Bolus insulin * NovoLog per scale ACHS or Q6hrs while NPO * Goal Range: Low 110 mg/dL - High 140 mg/dL * Correction Factor: 30 mg/dL/unit * Nutritional / Prandial insulin per carb ratio of 1 unit per 10 grams CHO consumed
--- NOTE | 2022-08-15 15:06 | Hospitalist Progress Note ---
Date of Service August 15, 2022 Assessment & Plan (1) Sepsis: Plan: Present on admission. Now resolved. She remains on intravenous cefepime, day 2. Final urine and blood culture reports pending but negative to date. CTA/P: IMPRESSION:1. No acute abnormalities and in particular no evidence of obstructive nephrolithiasis. 2. Diverticulosis without diverticulitis. 3. Nonobstructive nephrolithiasis is noted.4. Lipid rich left adrenal adenoma.5. Status post cholecystectomy. Procalcitonin elevated at 0.86 (2) Elevated lactic acid level: Plan: Present on admission. Now resolved (3) Acute left flank pain: Plan: No evidence of stone obstruction. Now resolved (4) Pyelonephritis: Plan: Ruled out by CT scan (5) Failure of outpatient treatment: Plan: She states she was on 2 different oral antibiotics as an outpatient which apparently failed. She is now on cefepime, day 2 (6) Hypomagnesemia: Plan: Repleted. Serial labs (7) Type 2 diabetes mellitus, controlled: Plan: ADA diet. Basal insulin twice daily. Sliding scale coverage as needed. Metfor min is on hold Plan Anticipate eventual discharge back to home later this week Admission and Anticipated Discharge Date Admission Date: August 14, 2022 Subjective Alert and oriented. No acute distress. Feeling much better. Blood cultures and urine cultures remain negative but final report is pending. She remains on cefepime. Glucose is now well controlled. White blood cell count is trending down. She states she never had DKA before and probably does not have it now. Current findings probably due to UTI related sepsis. We will transfer out of the intensive care unit today. Review of Systems Review of Systems: Constitutional-no fever or chills ENT-no blurred vision, no double vision, no epistaxis, no sore throat Respiratory-no cough, no wheezing, no shortness of breath Cardiac-no palpitations, no chest pain, no syncope GI-no nausea, vomiting, diarrhea, melena, hematochezia -no urinary retention, no urinary incontinence, no dysuria, no hematuria Musculoskeletal-no joint pain, no muscle tenderness Skin-no bruising, no rashes, no pruritus Neuro-no isolated weakness, no paresthesia, no weakness Psych-no depression, no anxiety Physical Exam Physical Exam: General-alert and oriented x3, no fevers, no chills HEENT-head atraumatic and normocephalic, pupils equal and reactive to light, extraocular muscles intact Neck-no lymphadenopathy or thyromegaly, trachea midline Chest-clear to auscultation percussion. No rales wheezing or rhonchi Cardiac-regular rate and rhythm, normal S1 and S2 Abdomen-normal bowel sounds, nontender, no hepatosplenomegaly Extremities-no cyanosis, clubbing, or edema Neuro-cranial nerves II through XII intact, motor and sensory function within normal limits, strength symmetrical, no focal deficits Psych-normal affect, normal mood Results & Data Results & [facility] ([facility]) Vital Signs (Past 12 Hours) Vital Signs Temp Pulse Pulse Resp BP BP Pulse Ox 08/15/22 11:39 37 C 99 H 22 126/71 96 08/15/22 07:43 100 H 18 118/78 95 08/15/22 08:00 37.7 C H 08/15/22 08:00 94 H 08/15/22 07:00 95 H 18 95 08/15/22 07:00 109/76 08/15/22 07:00 109/76 08/15/22 06:00 93 H 17 88 L 08/15/22 06:00 111/66 08/15/22 05:00 86 14 98 08/15/22 05:00 108/74 08/15/22 04:00 84 16 92 08/15/22 04:00 98/55 L 08/15/22 04:00 36.9 C O2 Del Method 08/15/22 11:39 Room Air 08/15/22 07:43 Room Air 08/15/22 08:00 08/15/22 08:00 08/15/22 07:00 08/15/22 07:00 08/15/22 07:00 08/15/22 06:00 08/15/22 06:00 08/15/22 05:00 08/15/22 05:00 08/15/22 04:00 08/15/22 04:00 08/15/22 04:00 Laboratory Results 08/15/22 05:34 08/15/22 05:34 PG Care Time/CCT Total # of Minutes Spent Total Time Spent with Patient: Total time spent is greater than 50% in coordination of care (as documented) at patient's floor/unit and/or counseling patient: Coding Level of Care Code 18346 SUB INP/OBS CARE 3/50MIN Diagnoses Sepsis A41.9 Sepsis acute organ dysfunction status: without acute organ dysfunction Sepsis type: sepsis due to unspecified organism Elevated lactic acid level R79.89 Acute left flank pain R10.9 Pyelonephritis N12 Failure of outpatient treatment Z78.9 Hypomagnesemia E83.42 Type 2 diabetes mellitus, controlled E11.9 (1) Sepsis Sepsis acute organ dysfunction status: without acute organ dysfunction Sepsis type: sepsis due to unspecified organism Qualified Code(s): A41.9 - Sepsis, uns pecified organism
[2022-08-15] MEDS: ATORVASTATIN 20 MG TAB PO SCH (19:46)
[2022-08-15] MEDS: LANTUS PER UNIT CHARGE SQ SCH (20:30)
[2022-08-15] MEDS ORDERED: LANTUS PER UNIT CHARGE SQ SCH (21:00)
[2022-08-16] MEDS: CEFEPIME 2,000 MG in SYRINGE 0 ML IV SCH (06:15)
[2022-08-16 06:32] LABS: Basophils # (auto) 0.03 K/uL (0-0.2); Basophils % (auto) 0.5 %; Eosinophils % (auto) 6.7 %; Hematocrit (blood only) 33.4 % (37.0-47.0); Immature Granulocytes # (auto) 0.03 K/uL (0.01-0.20); Immature Granulocytes % (auto) 0.5 %; Lymphocytes # (auto) 1.15 K/uL (1.2-3.4); Lymphocytes % (auto) 19.3 %; Mean Corpuscular Hemoglobin 29.8 pg (25.0-34.0); Mean Corpuscular Hgb Conc 32.9 g/dL (32.0-36.0); Mean Corpuscular Volume 90.5 fL (80.0-100.0); Mean Platelet Volume 10.4 fL (9.4-12.4); Monocytes # (auto) 0.51 K/uL (0.11-0.59); Monocytes % (auto) 8.5 %; Neutrophils # (auto) 3.85 K/uL (1.40-6.50); Neutrophils % (auto) 64.5 %; Platelet Count 195 K/uL (130-400); RDW Coefficient of Variation 13.8 % (11.5-14.5); RDW Standard Deviation 46.1 fL (36.4-46.3); Red Blood Count 3.69 M/uL (4.20-5.40); White Blood Count 5.97 K/ul (4.8-10.8)
[2022-08-16 08:19] LABS: Calcium 7.8 mg/dl (8.5-10.1)
[2022-08-16 08:20] LABS: BUN Creatinine Ratio 19.6 (10-20); Creatinine Clr Calc Pharmacy 54.1 ml/min; Est GFR (African American) 74.1 ml/min; Est GFR (Non-African American) 63.9 ml/min
[2022-08-16] MEDS: PANTOprazole 40 MG TAB PO SCH (08:27)
[2022-08-16] MEDS: ASPIRIN 81 MG ECTAB PO SCH (08:27)
[2022-08-16] MEDS: lisinopril 2.5 MG TAB PO SCH (08:27)
[2022-08-16] MEDS: INSULIN ASPART PER UNIT SC SCH ×2 (08:31→12:17)
[2022-08-16] MEDS: LANTUS PER UNIT CHARGE SQ SCH (08:32)
[2022-08-16] MEDS ORDERED: CHOLECALCIFEROL 1,000 UNITS 25 MCG TAB PO SCH (09:00)
[2022-08-16] MEDS ORDERED: CYANOCOBALAMIN (B-12) 500 MCG TABLET PO SCH (09:00)
[2022-08-16] MEDS ORDERED: ENOXAPARIN INJ 40 MG/0.4 ML SYR SQ SCH (09:00)
[2022-08-16 11:23] LABS: Adenovirus F 40/41 PCR Not Detected (NotDetected); Astrovirus PCR Not Detected (NotDetected); Campylobacter PCR Not Detected (NotDetected); Cryptosporidium PCR Not Detected (NotDetected); Cyclospora cayetanensis PCR Not Detected (NotDetected); Entamoeba histolytica PCR Not Detected (NotDetected); Enteroaggregative E.coli(EAEC) Not Detected (NotDetected); Enteropathogenic E.coli (EPEC) Not Detected (NotDetected); Enterotoxigenic E.coli (ETEC) Not Detected (NotDetected); Giardia lamblia PCR Not Detected (NotDetected); Norovirus GI/GII PCR DETECTED (NotDetected); Plesiomonas shigelloides PCR Not Detected (NotDetected); Rotavirus A PCR Not Detected (NotDetected); Salmonella PCR Not Detected (NotDetected); Shiga-like Toxin E.coli (STEC) Not Detected (NotDetected); Shigella/Enteroinvasive E.coli Not Detected (NotDetected); Vibrio cholerae PCR Not Detected (NotDetected); Vibrio species PCR Not Detected (NotDetected); Yersinia enterocolitica PCR Not Detected (NotDetected)
[2022-08-16 11:27] LABS: Sapovirus PCR Not Detected (NotDetected)
--- NOTE | 2022-08-16 12:02 | Discharge Summary ---
Date of Service August 16, 2022 Admission HPI Per Admitting Provider 61-year-old female with nausea/vomiting/fever. Was seen by urology with gamma strep UTI and was placed on Keflex/Macrobid. Patient continues to have left flank pain radiating into her abdomen with pain worsening to 8 out of 10. Is a leukocytosis of 13 on admission, creatinine baseline is less than 1.2, admitting creatinine is 1.17. Elevated BSG 344. Elevated BUN/creatinine ratio consistent with volume depletion Nanette reports she has had flank pain back in June with elevated blood sugars. Saw Dr. Mac's PA at that time and had a UA which was positive. Was placed on Keflex. Her BSG have not gotten better, and continued to have abdominal pain. Was seen for followup and repeat UA and was placed on Macrobid. Was referred for urology for recurrent UTI. Dr. Lau recommended a CT. Saw a cyst on her R k id[place] which remained unchanged. +stones but no obstructive nephrolithiasis. Recommended a cystoscopy which was scheduled for 08/2022. This mornign Nanette felt she was suddenly much worse. +diarrhea, +vomiting, fever of 99-100*F. Was recommended to go to the ER if she worsened so she came in. After being on macrobid she had felt better up until today, and sugars were a little better but did not get completely back to baseline but did feel like she had improved a bit just not completely and pain hadn't fully disappointed. At assessment no nausea/vomiting Last BM was this morning. Several times per day. No blood, yellow in color. Completely liquid. No melena Urine has been darker/coke colored last day or two. No shortness of breath No cough Sweaty/feverish this AM /w emesis every 30-40 minutes. No blood or bile in emesis/ No chest pain or chest pressure No dysuria Medical History: Reviewed Medications: Reviewed Surgical History: Reviewed Family history: Reviewed Allergies: Reviewed. Rash with cipro/flagyl, has tolerated cipro alone before Social History: No tobacco product use, no alcohol. Code Status: FUll Code Magnesium 1.4, repleted Procalcitonin 0.86 UA pending Received Toradol, cefepime, saline, Phenergan on admission CTA/P: IMPRESSION: 1. No acute abnormalities and in particular no evidence of obstructive nephrolithiasis. 2. Diverticulosis without diverticulitis. 3. Nonobstructive nephrolithiasis is noted. 4. Lipid rich left adrenal adenoma. 5. Status post cholecystectomy. Based on home basal requirements: Lantus 24 twice daily, CF 15, carb ratio 6 Pharmacy glycemic consulted due to discrepancy between weight-based and basal home dosing UC pending BC pending Empiric cefepime continued, outpatient UA positive for gamma strep. Keflex/Macrobid with high rates of failure, will convert to cefepime while inpatient Lactate was elevated at 3.4, is downtrending. Elevated BUN/creatinine ratio Principal Diagnosis Suspected UTI, sepsis, norovirus infection Discharge Exam General-alert and oriented x3, no fevers, no chills HEENT-head atraumatic and normocephalic, pupils equal and reactive to light, extraocular muscles intact Neck-no lymphadenopathy or thyromegaly, trachea midline Chest-clear to auscultation percussion. No rales wheezing or rhonchi Cardiac-regular rate and rhythm, normal S1 and S2 Abdomen-normal bowel sounds, nontender, no hepatosplenomegaly Extremities-no cyanosis, clubbing, or edema Neuro-cranial nerves II through XII intact, motor and sensory function within normal limits, strength symmetrical, no focal deficits Psych-normal affect, normal mood Discharge Data Allergies Allergy/AdvReac Type Severity Reaction Status Date / Time ciprofloxacin [From Cipro] Allergy Mild Rash Verified 07/31/22 11:18 metronidazole [From Flagyl] Allergy Mild rash Verified 07/31/22 11:18 amoxicillin [From Augmentin] AdvReac Mild nausea Verified 07/31/22 11:18 vomiting clarithromycin AdvReac Mild NAUSEA Verified 07/31/22 11:18 clavulanic acid AdvReac Mild NAUSEA Verified 07/31/22 11:18 Consultations 08/14/22 14:39 ED Decision to Admit Stat Ordered Studies 08/14/22 11:56 CT abd pelvis wo con Stat Hospital Course (1) Sepsis: Present on admission. Now resolved. Treated while hospitalized with intravenous cefepime, day 3. Final urine and blood culture reports are but negative to date. CTA/P: IMPRESSION:1. No acute abnormalities and in particular no evidence of obstructive nephrolithiasis. 2. Diverticulosis without diverticulitis. 3. Nonobstructive nephrolithiasis is noted.4. Lipid rich left adrenal adenoma.5. Status post cholecystectomy. Procalcitonin elevated at 0.86 (2) Elevated lactic acid level: Present on admission. Now resolved (3) Acute left flank pain: No evidence of stone obstruction. Now resolved (4) Pyelonephritis: Ruled out by CT scan (5) Failure of outpatient treatment: She states she was on 2 different oral antibiotics as an outpatient which apparently failed. She is now on cefepime, day 2 (6) Hypomagnesemia: Repleted. Serial labs (7) Type 2 diabetes mellitus, controlled: ADA diet. Basal insulin twice daily. Sliding scale coverage as needed. Metformin is on hold (8) Infection due to Norovirus species: Self-limiting. She had some vomiting prior to admission and several loose stools but everything seems to have resolved. Plan Discharge to home today, August 16 . We will continue oral Keflex for a few more days for suspected UTI Total Time Total Time Spent Total Time Spent (In Minutes): 40 minutes Discharge Plan Discharge Items Patient Disposition: Home - Self-Care Reason For Visit: SEPSIS Discharge Diagnosis: Suspected UTI, sepsis, norovirus infection Condition on Discharge: Fair Activity: Resume your previous activity Non-emergency contact: Primary Care Provider Call non-emergency contact if: you have any medication questions Follow-up/Referrals: Yin Mac DO [Primary Care Provider] - Diet: Carb Consistent or DM2 Addtl Attending Provider Instructions: Take cephalexin antibiotic for 3 more days Pending Studies at Discharge: No Stand-Alone Forms: My [employer], Smoking Cessation Medications and DC Order Prescriptions: New cephalexin 250 mg capsule 250 mg PO QID Qty: 12 0RF Continued (DME) FreeStyle Iqra 14 Day Sensor Kit See Rx Instructions [id number] .MEDSUPPLY Qty: 6 3RF Rx Instructions: replace sensor every 14 days atorvastatin 20 mg tablet 20 mg PO HS Qty: 90 3RF lisinopril 2.5 mg tablet 2.5 mg PO DAILY Qty: 90 3RF (DME) pen needle, diabetic [BD Ultra-Fine Janessa Pen Needle] 32 gauge x 5/32" needle See Rx Instructions .ROUTE .MEDSUPPLY Qty: 400 3RF Rx Instructions: Four times a day (DME) OneTouch Verio test strips Strip See Rx Instructions .ROUTE .MEDSUPPLY Qty: 100 1RF Rx Instructions: Test blood sugar 1-2 times a day escitalopram oxalate 20 mg tablet 20 mg PO DAILY Qty: 30 2RF cholecalciferol (vitamin D3) 2,000 unit tablet 2,000 units PO DAILY aspirin [Adult Low Dose Aspirin] 81 mg tablet,delayed release (DR/EC) 81 mg PO DAILY Qty: 30 2RF cyanocobalamin (vitamin B-12) 1,000 mcg tablet 1,000 mcg PO DAILY Qty: 30 omeprazole magnesium 20 mg tablet,delayed release (DR/EC) 20 mg PO DAILY PRN (Reason: Acid Reflux) (DME) FreeStyle Iqra 2 Sensor Kit See Rx Instructions miscellaneous .MEDSUPPLY Qty: 2 11RF Rx Instructions: Change q 14 days to monitor sugar metformin 500 mg tablet extended release 24 hr 1,000 mg PO BID Qty: 180 3RF insulin aspart U-100 [Novolog FlexPen U-100 Insulin] 100 unit/mL (3 mL) insulin pen 40 unit SQ DAILY Rx Instructions: inject as directed with meals to a TDD of 40 units (DME) lancets [OneTouch Delica Lancets] 30 gauge misc See Rx Instructions .ROUTE .MEDSUPPLY Qty: 25 Rx Instructions: Test blood sugar 1-2 times a day Toujeo SoloStar U-300 Insulin 300 unit/mL (1.5 mL) insulin pen 48 unit SQ HS baclofen 5 mg tablet 5 mg PO TID PRN (Reason: muscle spasm) Qty: 30 0RF Discharge Orders: Discharge Order (Routine); Ordered 08/16/22 Ordered By: Juwan Powers Admission Data Admit Date/Time: 08/14/22 15:33 Attending Provider: Juwan Powers Admit Provider: Sanket Carter Primary Care Provider: Yin Mac Other Providers: Sanket Carter Other Interventions: Discharge Summary Assessment (RN) Last Done: 08/16/22 11:08 Coding Level of Care Code 69221 INP/OBS DISCH >30 MIN Diagnoses Sepsis A41.9 Sepsis acute organ dysfunction status: without acute organ dysfunction Sepsis type: sepsis due to unspecified organism Elevated lactic acid level R79.89 Acute left flank pain R10.9 Pyelonephritis N12 Failure of outpatient treatment Z78.9 Hypomagnesemia E83.42 Type 2 diabetes mellitus, controlled E11.9 Infection due to Norovirus species A08.11
== END 2022-08-16 13:35 | disposition home or self-care (01) | DRG 872 ==
LOC: ED 11:45 → SUATTDRO 15:33 → 1E 15:33 → 2N 08-15 17:20

== ENCOUNTER 2023-01-03 13:32 | Inpatient (IN) ==
[2023-01-03 16:13] LABS: Basophils # (auto) 0.04 K/uL (0-0.2); Basophils % (auto) 0.5 %; Eosinophils # (auto) 0.13 K/uL (0-0.50); Eosinophils % (auto) 1.6 %; Hematocrit (blood only) 36.8 % (37.0-47.0); Hemoglobin 12.1 g/dl (12.0-16.0); Immature Granulocytes # (auto) 0.05 K/uL (0.01-0.20); Immature Granulocytes % (auto) 0.6 %; Lymphocytes # (auto) 1.58 K/uL (1.2-3.4); Lymphocytes % (auto) 19.1 %; Mean Corpuscular Hemoglobin 29.4 pg (25.0-34.0); Mean Corpuscular Hgb Conc 32.9 g/dL (32.0-36.0); Mean Corpuscular Volume 89.3 fL (80.0-100.0); Mean Platelet Volume 9.9 fL (9.4-12.4); Monocytes % (auto) 8.5 %; Neutrophils # (auto) 5.77 K/uL (1.40-6.50); Neutrophils % (auto) 69.7 %; Platelet Count 268 K/uL (130-400); RDW Coefficient of Variation 14.1 % (11.5-14.5); RDW Standard Deviation 45.5 fL (36.4-46.3); Red Blood Count 4.12 M/uL (4.20-5.40); White Blood Count 8.27 K/ul (4.8-10.8)
[2023-01-03 16:18] LABS: Albumin Globulin Ratio 1.2 (0.9-2); Albumin Level 4.1 gm/dl (3.4-5.0); BUN Creatinine Ratio 17.8 (10-20); Bilirubin,Total 0.6 mg/dl (0.2-1.0); Calcium 9.9 mg/dl (8.6-10.3); Creatinine Clr Calc Pharmacy 48.1 ml/min; Est GFR (African American) 65.3 ml/min; Est GFR (Non-African American) 56.4 ml/min; Globulin 3.5 gm/dl (2.5-4.0); Magnesium 1.7 mg/dl (1.7-2.4); Potassium 4.2 mmol/L (3.5-5.1); Total Protein 7.6 gm/dl (6.0-8.3)
[2023-01-03 16:24] LABS: Troponin I High Sensitivity 4.8 pg/ml (0-14)
[2023-01-03 16:28] LABS: INR 0.9 (0.9-1.1); Partial Thromboplastin Time 28.4 Seconds (21.0-31.0); Prothrombin Time 10.4 Seconds (9.0-12.0)
[2023-01-03 16:30] LABS: Appearance Urine Cloudy (Clear); Bacteria Urine Automated 2+ (Negative); Bilirubin Urine Negative (Negative); Blood Urine 1+ (Negative); Color Urine Yellow; Epithelial Cell Urine Auto 0-5 /lpf (0-5); Glucose Urine UA Negative (Negative); Ketones Urine Negative (Negative); Leukocyte Esterase Urine 3+ (Negative); Nitrite Urine Positive (Negative); Protein Urine Trace (Negative); RBC Urine Automated 0-4 /hpf (0-4); Specific Gravity Urine 1.009 (1.000-1.030); Urobilinogen Urine Negative (Negative); WBC Urine Automated >30 /hpf (0-5); pH Urine 5.5 (4.5-7.5)
--- NOTE | 2023-01-03 16:34 | Emergency Department Note ---
History of Present Illness General Chief complaint: Fever Stated complaint: FEVER, CHILLS, NAUSEA Time Seen by Provider: 01/03/23 16:31 History of Present Illness Maximum Pain Intensity: 1 This 62-year-old female patient presents to the emergency department with her daughter for evaluation of nausea, fever, and chills. She states that last night around 2300 she started shaking and had the chills. She took her temperature which was 101 F. She started taking ibuprofen, Tylenol, and got in a lukewarm bath. At around 6 AM this morning her fever broke. However, around 11:30 AM the chills and shaking returned and her fever was 100.5 F. She took Advil at that time, but no pain medication since then. KUB 12/19/22 shows stable left sided nephrolithiasis measuring 12 mm. The patient had a cystoscopy for removal of the stone with stent placed on 12/27/22. She then had the stent removed on 01/01/2023. The patient had been battling a UTI prior to the procedure and had been on an antibiotic - she thinks Keflex. She did receive IV antibiotics during the procedure and she was discharged home on another oral antibiotic that she finished on 01/01/2023 - maybe Bactrim per patient. She was discharged on Ibuprofen and Tylenol alternating every 4 hrs. Symptoms improved after stent removal until last night. She has had continued nausea, mild left flank pain, and 1 episode of vomiting along with the fevers since last night. Denies any cough or URI symptoms. History of sepsis in August 2022 due to a UTI per patient. She sees Dr. Covington of urology. Home Medications Medication Instructions Recorded Confirmed Type cholecalciferol (vitamin D3) 50 2,000 units PO HS 11/14/18 01/03/23 History mcg (2,000 unit) tablet cyanocobalamin (vitamin B-12) 1,000 mcg PO QAM #30 tabs 05/18/19 01/03/23 Hist ory 1,000 mcg tablet lancets 30 gauge (OneTouch Deljanes #25 ea 01/16/21 01/03/23 History Lancets) BD Ultra-Fine Janessa Pen Needle 32 #400 ea 02/19/22 01/03/23 Rx gauge x 5/32" (pen needle, diabetic) blood sugar diagnostic (OneTouch #100 ea 04/17/22 01/03/23 Rx Verio test strips) blood-glucose sensor (FreeStyle #2 ea 08/27/22 01/03/23 Rx Iqra 3 Sensor device) insulin aspart U-100 100 unit/mL 40 unit (0.4 mL) subcut DAILY #45 09/03/22 01/03/23 Rx (3 mL) subcutaneous pen (Novolog mL FlexPen U-100 Insulin aspart) atorvastatin 20 mg tablet 20 mg PO HS #90 tabs 10/01/22 01/03/23 Rx metformin 500 mg tablet,extended 1,000 mg PO BID #180 tabs 11/07/22 01/03/23 Rx release 24 hr insulin glargine U-300 conc 300 44 unit subcut HS 11/09/22 01/03/23 History unit/mL (1.5 mL) subcutaneous pen (Toujeo SoloStar U-300 Insulin) omeprazole 40 mg capsule,delayed 40 mg PO HS 11/09/22 01/03/23 History release apremilast 30 mg tablet (Otezla) 30 mg PO BID #60 tabs 12/13/22 01/03/23 Rx aspirin 81 mg tablet,delayed 81 mg PO QAM 12/20/22 01/03/23 History release (Adult Low Dose Aspirin) betamethasone dipropionate 0.05 % 1 applic topical UD PRN psoriasis 12/20/22 01/03/23 History lotion hydrocortisone 2.5 % topical cream 1 applic topical BID PRN psoriasis 12/20/22 01/03/23 History lisinopril 2.5 mg tablet 2.5 mg PO QAM 12/20/22 01/03/23 History triamcinolone acetonide 0.1 % 1 applic topical BID PRN psoriasis 12/20/22 01/03/23 History topical cream oxycodone-acetaminophen 7.5 mg-325 1 tab PO Q8H PRN pain #7 tabs 12/27/22 01/03/23 Rx mg tablet (Percocet) tamsulosin 0.4 mg capsule 0.4 mg PO HS #30 caps 12/27/22 01/03/23 Rx Allergies Allergy/AdvReac Type Severity Reaction Status Date / Time ciprofloxacin [From Cipro] Allergy Mild Rash Verified 12/27/22 06:19 metronidazole [From Flagyl] Allergy Mild rash Verified 12/27/22 06:19 amoxicillin [From Augmentin] AdvReac Mild nausea Verified 12/27/22 06:19 vomiting clarithromycin AdvReac Mild NAUSEA Verified 12/27/22 06:19 clavulanic acid AdvReac Mild NAUSEA Verified 12/27/22 06:19 Past Med/Surg History Medical History Adrenal adenoma hx Candidal intertrigo Congestion of nasal sinus Depression Diabetes mellitus type 2, uncontrolled, without complications IDDM Extrinsic asthma Fatty infiltration of liver History of COVID-2019, [facility] test, not hosp; shortness of breath, N/V, diarrhea, chills, fever, loss taste and smell>resolved. 12/30/21, [facility] test, not hosp; fever, vomiting>resolved. History of diverticulitis of colon Hx of chest pain years ago, cardiac testing w/stress test at [facility]-f/u with Dr. Eason, [facility]- only f/u with PCP now Hypercholesterolemia Hypertension Nephrolithiasis Obesity Psoriasis Recurrent UTI starting 06/2022>became septic 08/14-08/17/22, admitted to [facility] Surgical History History of x1 Hx of lithotripsy S/P cholecystectomy S/P tonsillectomy S/P tooth extraction 08/2021 Family History Mother Anxiety Cardiac disorder Depression Diabetes Hypertension Myocardial infarction Sarcoidosis Father Asthma Skin cancer Grandmother (Maternal) Colorectal cancer Social History Smoking Status: Never smoker Second Hand Exposure: No; Do You Dip or Chew Tobacco: No; Hx Alcohol Use: No Hx Substance Use: No Preferred Language: Arabic Communication Ability: Effective Visual Impairment: No Limitations Hearing Ability: Normal Integration Solution Architect Required: No Beliefs That Will Affect Care: None marital status: Current Living Situation: Spouse and Family current occupational status: employed current occupation: CPA Feels Safe at Home: Yes Childhood Exposure to Second-Hand Smoke: Yes Diet: low carbohydrate caffeine: Yes during the past year weight has: remained stable Dental Care, Regularly: Yes Physical Activity Frequency: Does not Exercise Seatbelt Use: always Sunscreen Use: Yes Assistive Devices: Contacts and Glasses Review of Systems See HPI for pertinent positives & negatives. Physical Exam Vital Signs Vital Signs - 24 hr 01/03/23 13:38 01/03/23 17:16 01/03/23 17:16 Temperature 37.3 C Temperature Source Oral Pulse Rate 101 H Pulse Rate [Apical] 94 H Pulse Rhythm Regular Pulse Strength Normal Respiratory Rate 18 18 Respiratory Effort / Characteristics Non-Labored Spontaneous Respiratory Depth Normal Respiratory Pattern Regular Blood Pressure 131/79 Blood Pressure [Left Arm] 122/76 Blood Pressure Mean 96 Blood Pressure Mean [Left Arm] 91 Blood Pressure Position Sitting Pulse Oximetry 95 98 99 Oxygen Delivery Method Room Air Room Air Room Air Sepsis Recent Fever Within 48 Hours Yes Sepsis New/Unexplained Change in Mental Status No Sepsis Action Taken by Nursing No Action Required 01/03/23 17:27 01/03/23 19:00 01/03/23 20:00 Temperature Temperature Source Pulse Rate 93 H 86 82 Pulse Rate [Apical] Pulse Rhythm Pulse Strength Respiratory Rate 22 20 Respiratory Effort / Characteristics Respiratory Depth Respiratory Pattern Blood Pressure 117/76 111/71 Blood Pressure [Left Arm] Blood Pressure Mean 97 98 Blood Pressure Mean [Left Arm] Blood Pressure Position Pulse Oximetry 97 97 Oxygen Delivery Method Sepsis Recent Fever Within 48 Hours Sepsis New/Unexplained Change in Mental Status Sepsis Action Taken by Nursing VITALS: Vitals are noted on the nurse's note and reviewed by myself. GENERAL: Non toxic, no acute distress, non-diaphoretic. SKIN: Capillary refill <2 sec. EYES: PERRLA. EOMI. Conjunctivae without injection, sclerae without icterus. NOSE: Patent without discharge. MOUTH: Mucous membranes moist. Uvula midline. Airway patent. NECK: Supple without nuchal rigidity. HEART: Regular rate and rhythm without murmurs gallops or rubs. LUNGS: Clear to auscultation bilaterally without wheezes, rales or rhonchi. No retractions or accessory muscle use. ABDOMEN: Positive bowel sounds x 4. Normal tympanic percussion. Soft, tender to palpation on the left flank and left side of the abdomen. No masses or organomegaly. Positive left-sided CVA tenderness. Talbot sign negative. No guarding or rebound tenderness. Course Administered Medications Discontinued Medications Acetaminophen (Acetaminophen 500 Mg Tab) 1,000 mg PO NOW STA Stop: 01/03/23 16:49 Last Admin: 01/03/23 17:22 Dose: 1,000 mg Documented By: SHAHAB Sodium Chloride (Nss 1000ml) 1,000 mls @ 999 mls/hr IV .Q1H1M ONE Stop: 01/03/23 17:48 Last Infusion: 01/03/23 20:00 Dose: 0 mls/hr Documented By: Admin: 01/03/23 17:21 Dose: 999 mls/hr Documented By: SHAHAB Ceftriaxone Sodium (Rocephin) 2,000 mg in 70 mls @ 140 mls/hr IV NOW STA Stop: 01/03/23 19:17 Last Infusion: 01/03/23 21:00 Dose: 0 mls/hr Documented By: Admin: 01/03/23 20:00 Dose: 140 mls/hr Documented By: CHAS Ioversol (Optiray 320 100ml) 93 ml IV ONCE ONE Stop: 01/03/23 17:49 Last Admin: 01/03/23 17:49 Dose: 93 ml Documented By: DANYA Medical Decision Making Differential Diagnosis Differential diagnosis includes hepatitis, pancreatitis, cholecystitis, cholelithiasis, appendicitis, kidney stone, pyelonephritis, UTI, gastritis, gastroenteritis, mesenteric adenitis, obstruction, constipation, hernia, abdominal abscess, perforation, diverticulitis, IBD, ischemic colitis, abdominal aortic aneurysm, ovarian cyst, ovarian torsion, acute salpingitis, or others. Laboratory Data Attestation: I reviewed the patient's lab results. 01/03/23 15:42 01/03/23 15:42 Lab Results 01/03/23 01/03/23 01/03/23 Range/Units 15:42 15:42 15:42 WBC 8.27 (4.8-10.8) K/ul RBC 4.12 L (4.20-5.40) M/uL Hgb 12.1 (12.0-16.0) g/dl Hct 36.8 L (37.0-47.0) % MCV 89.3 (80.0-100.0) fL MCH 29.4 (25.0-34.0) pg MCHC 32.9 (32.0-36.0) g/dL RDW Std Deviation 45.5 (36.4-46.3) fL RDW Coeff of Aly 14.1 (11.5-14.5) % Plt Count 268 (130-400) K/uL MPV 9.9 (9.4-12.4) fL Immature Gran % (Auto) 0.6 % Neut % (Auto) 69.7 % Lymph % (Auto) 19.1 % Scott % (Auto) 8.5 % Eos % (Auto) 1.6 % Baso % (Auto) 0.5 % Neut # (Auto) 5.77 (1.40-6.50) K/uL Lymph # (Auto) 1.58 (1.2-3.4) K/uL Scott # (Auto) 0.70 H (0.11-0.59) K/uL Eos # (Auto) 0.13 (0-0.50) K/uL Baso # (Auto) 0.04 (0-0.2) K/uL Immature Gran # (Auto) 0.05 (0.01-0.20) K/uL PT 10.4 (9.0-12.0) Seconds INR 0.9 (0.9-1.1) APTT 28.4 (21.0-31.0) Seconds PTT Ratio 1.0 Sodium 135 L (136-145) mmol/L Potassium 4.2 (3.5-5.1) mmol/L Chloride 104 (98-107) mmol/L Carbon Dioxide 23 (21-32) mmol/L Anion Gap 8 (3-11) BUN 19 (6-23) mg/dl Creatinine 1.07 (0.6-1.2) mg/dl Est Cr Clr Drug Dosing 48.1 ml/min Est GFR ( Amer) 65.3 ml/min Est GFR (Non-Af Amer) 56.4 ml/min BUN/Creatinine Ratio 17.8 (10-20) Glucose 152 H (70-99(Fasting)) mg/dl Lactate (0.4-2.0) mmol/L Calcium 9.9 (8.6-10.3) mg/dl Magnesium 1.7 (1.7-2.4) mg/dl Total Bilirubin 0.6 (0.2-1.0) mg/dl AST 15 (13-39) U/L ALT 22 (7-52) U/L Alkaline Phosphatase 83 (34-104) U/L Troponin I High Sens 4.8 (0-14) pg/ml Total Protein 7.6 (6.0-8.3) gm/dl Albumin 4.1 (3.4-5.0) gm/dl Globulin 3.5 (2.5-4.0) gm/dl Albumin/Globulin Ratio 1.2 (0.9-2) Procalcitonin (0-0.5) ng/ml Urine Color Urine Appearance (Clear) Urine pH (4.5-7.5) Ur Specific Rudolph (1.000-1.030) Urine Protein (Negative) Urine Glucose (UA) (Negative) Urine Ketones (Negative) Urine Blood (Negative) Urine Nitrite (Negative) Urine Bilirubin (Negative) Urine Urobilinogen (Negative) Ur Leukocyte Esterase (Negative) Urine WBC (Auto) (0-5) /hpf Urine RBC (Auto) (0-4) /hpf U Hyaline Cast (Auto) (0-5) /lpf U Epithel Cells (Auto) (0-5) /lpf Urine Bacteria (Auto) (Negative) 01/03/23 01/03/23 01/03/23 Range/Units 15:42 15:42 17:34 WBC (4.8-10.8) K/ul RBC (4.20-5.40) M/uL Hgb (12.0-16.0) g/dl Hct (37.0-47.0) % MCV (80.0-100.0) fL MCH (25.0-34.0) pg MCHC (32.0-36.0) g/dL RDW Std Deviation (36.4-46.3) fL RDW Coeff of Aly (11.5-14.5) % Plt Count (130-400) K/uL MPV (9.4-12.4) fL Immature Gran % (Auto) % Neut % (Auto) % Lymph % (Auto) % Scott % (Auto) % Eos % (Auto) % Baso % (Auto) % Neut # (Auto) (1.40-6.50) K/uL Lymph # (Auto) (1.2-3.4) K/uL Scott # (Auto) (0.11-0.59) K/uL Eos # (Auto) (0-0.50) K/uL Baso # (Auto) (0-0.2) K/uL Immature Gran # (Auto) (0.01-0.20) K/uL PT (9.0-12.0) Seconds INR (0.9-1.1) APTT (21.0-31.0) Seconds PTT Ratio Sodium (136-145) mmol/L Potassium (3.5-5.1) mmol/L Chloride (98-107) mmol/L Carbon Dioxide (21-32) mmol/L Anion Gap (3-11) BUN (6-23) mg/dl Creatinine (0.6-1.2) mg/dl Est Cr Clr Drug Dosing ml/min Est GFR ( Amer) ml/min Est GFR (Non-Af Amer) ml/min BUN/Creatinine Ratio (10-20) Glucose (70-99(Fasting)) mg/dl Lactate 1.5 (0.4-2.0) mmol/L Calcium (8.6-10.3) mg/dl Magnesium (1.7-2.4) mg/dl Total Bilirubin (0.2-1.0) mg/dl AST (13-39) U/L ALT (7-52) U/L Alkaline Phosphatase (34-104) U/L Troponin I High Sens (0-14) pg/ml Total Protein (6.0-8.3) gm/dl Albumin (3.4-5.0) gm/dl Globulin (2.5-4.0) gm/dl Albumin/Globulin Ratio (0.9-2) Procalcitonin 0.75 H (0-0.5) ng/ml Urine Color Yellow Urine Appearance Cloudy A (Clear) Urine pH 5.5 (4.5-7.5) Ur Specific Rudolph 1.009 (1.000-1.030) Urine Protein Trace H (Negative) Urine Glucose (UA) Negative (Negative) Urine Ketones Negative (Negative) Urine Blood 1+ H (Negative) Urine Nitrite Positive A (Negative) Urine Bilirubin Negative (Negative) Urine Urobilinogen Negative (Negative) Ur Leukocyte Esterase 3+ H (Negative) Urine WBC (Auto) >30 H (0-5) /hpf Urine RBC (Auto) 0-4 (0-4) /hpf U Hyaline Cast (Auto) 1-5 (0-5) /lpf U Epithel Cells (Auto) 0-5 (0-5) /lpf Urine Bacteria (Auto) 2+ H (Negative) Imaging Data Radiologist's Impression: Chest X-Ray 01/03/23 13:46 XR chest 1V portable HISTORY: Sepsis COMPARISON: Chest 12/19/2022. FINDINGS: The cardiac silhouette is mildly enlarged. There are low lung volumes. The lungs are clear. No pleural effusions. No pneumothorax. IMPRESSION: Mild cardiomegaly. Otherwise, no acute process within the chest. ACT 112: Negative or not required by law. Electronically signed by: Fernando Nichols M.D. 01/03/2023 5:05 PM Abdomen/Pelvis CT 01/03/23 16:[address] WITH IV CONTRAST CT DOSE: 1277.69 mGy.cm HISTORY: Left flank pain, UTI, fever, eval pyelo TECHNIQUE: Multiaxial CT images of the abdomen and pelvis were performed following the use of intravenous contrast. A dose lowering technique was utilized adhering to the principles of ALARA. COMPARISON STUDY: Abdomen and pelvis CT 08/14/2022. FINDINGS: Mild dependent changes seen at the lung bases. No pneumoperitoneum. No pneumatosis. No acute fractures identified. There is a small hiatus hernia, unchanged. There is a moderate size fat-containing umbilical hernia again noted. Prior cholecystectomy. The liver, pancreas, spleen, and right adrenal gland unremarkable. There is a stable 2.1 cm left adrenal gland nodule. The main portal vein is patent. Normal caliber abdominal aorta. There is a left circumaortic renal vein. Mild upper left para-aortic lymphadenopathy is noted. This is likely reactive. No pelvic lymphadenopathy or pelvic free fluid. The uterus and bilateral adnexa are unremarkable. Colonic diverticulosis. No evidence for acute diverticulitis. No bowel wall thickening or obstruction. Normal appendix. There is subtle heterogeneous enhancement within the left kidney most pronounced within the lower pole. This may represent a developing pyelonephritis. Small bilateral peripelvic and renal cysts are noted. Left-sided nephrolithiasis, unchanged. Dominant stones within the upper pole measure up to 7 mm no ureteral stones. No right-sided hydronephrosis. There is mild bladder wall thickening with adjacent fat stranding. There is also mild urothelial thickening within the left renal collecting system and left ureter. This includes a long segment of thickened urothelium involving the distal 5 cm of the left ureter with associated enhancement. Proximal to this site there is mild left hydroureteronephrosis. Mild fat stranding surrounding the left kidney. IMPRESSION: 1. Mild heterogeneous enhancement within the left kidney likely representing a pyelonephritis. 2. There is also mild urothelial enhancement throughout the left renal collecting system and left ureter suggestive of a pyelitis. The distal 5 cm of the left ureter is thickened and decompressed suggestive of a possible stricture. This likely accounts for the upstream left-sided hydroureteron ephrosis. However, follow-up urology consultation recommended to exclude the less likely possibility of an occult urothelial lesion. 3. Bladder wall thickening with adjacent fat stranding consistent with a cystitis. 4. Left-sided nephrolithiasis. No ureteral stones. 5. Additional findings as described above. ACT 112: Positive. There are findings on this exam that require communication between the performing entity and the patient following Patient Test Result Information Act ([place] Act 112) guidelines. Electronically signed by: Fernando Nichols M.D. 01/03/2023 6:35 PM MDM Narrative I examined the patient. An IV lock was placed and labs were drawn. She was given 1 L normal saline solution bolus. She was given Tylenol 1000 mg p.o. for pain. The patient had fevers at home, but has been afebrile in the emergency department. Continuous paper feeder: Order was placed for continuous paper feeder. Patient was placed on the paper feeder and continuous pulse ox. Patient was noted to be in normal sinus rhythm at an initial rate of 88 bpm per my interpretation. EKG was interpreted by myself as normal sinus rhythm at 91 bpm with no acute ST or T wave changes and no significant change from her previous EKG. CBC without leukocytosis, anemia, or thrombocytopenia. Coags were normal. Sodium 135 and glucose 152, but CMP otherwise normal. Magnesium normal. High- sensitivity troponin normal. Lactate normal. Procalcitonin slightly elevated at 0.75. Urinalysis with 1+ blood, positive nitrites, 3+ leukocyte Estrace, greater than 30 white blood cells, and 2+ bacteria concerning for infection. Urine culture is pending. Blood cultures are pending. COVID, RSV, and influenza were negative. Chest x-ray was interpreted by myself and read by radiology as above and shows mild cardiomegaly, but no acute cardiopulmonary etiology. CT scan of the abdomen pelvis with IV contrast was reviewed by myself and read by radiology as above and shows mild heterogeneous enhancement within the left kidney likely representing a pyelonephritis. There is also mild urothelial enhancement throughout the left renal collecting system and left ureter suggestive of pyelitis. The distal 5 cm of the left ureter is thickened and decompressed suggestive of a possible stricture. This likely accounts for the upstream left-sided hydroureteronephrosis. However, urology consultation recommended to exclude the less likely possibility of an occult urethral lesion. There is bladder wall thickening and adjacent fat stranding consistent with a cystitis. Left-sided nephrolithiasis with no ureteral stones. I spoke with Dr. Goodrich of urology who reviewed the CT scan as well. He does not feel the patient requires any emergent management based on the CT scan findings. He recommended admission to medicine with urology consultation for further management. She was given Rocephin 2 g IV. I spoke with the on-call hospitalist who agreed to admit the patient for further management. Please refer to their dictation for further details. The patient's care was transf erred in stable condition. Impression & Plan Pyelonephritis Discharge Plan Visit Data Chief Complaint: Fever Stated Complaint: FEVER, CHILLS, NAUSEA ED Provider: Zack Cooper ED Midlevel Provider: Tamiko Fraser Discharge Problem: Pyelonephritis Patient Disposition: Admitted As Inpatient Condition: Good Discharge Instructions Interventions: ED Discharge Assessment Last Done: 01/03/23 22:53
[2023-01-03] MEDS ORDERED: ACETAMINOPHEN 500 MG TAB PO STA (16:48)
[2023-01-03] MEDS ORDERED: SODIUM CHLORIDE 0.9% 1000ML 1,000 ML IV ONE (16:48)
--- NOTE | 2023-01-03 17:06 | XRay Report ---
XR chest 1V portable HISTORY: Sepsis COMPARISON: Chest 12/19/2022. FINDINGS: The cardiac silhouette is mildly enlarged. There are low lung volumes. The lungs are clear. No pleural effusions. No pneumothorax. IMPRESSION: Mild cardiomegaly. Otherwise, no acute process within the chest. ACT 112: Negative or not required by law. Electronically signed by: Fernando Nichols M.D. 01/03/2023 5:05 PM
[2023-01-03] MEDS ORDERED: OPTIRAY 320 100ml IV ONE (17:48)
--- NOTE | 2023-01-03 18:37 | CT Scan Report ---
ABDOMEN AND PELVIS CT WITH IV CONTRAST CT DOSE: 1277.69 mGy.cm HISTORY: Left flank pain, UTI, fever, eval pyelo TECHNIQUE: Multiaxial CT images of the abdomen and pelvis were performed following the use of intrave nous contrast. A dose lowering technique was utilized adhering to the principles of ALARA. COMPARISON STUDY: Abdomen and pelvis CT 08/14/2022. FINDINGS: Mild dependent changes seen at the lung bases. No pneumoperitoneum. No pneumatosis. No acut e fractures identified. There is a small hiatus hernia, unchanged. There is a moderate size fat-conta ining umbilical hernia again noted. Prior cholecystectomy. The liver, pancreas, spleen, and right adr enal gland unremarkable. There is a stable 2.1 cm left adrenal gland nodule. The main portal vein is patent. Normal caliber abdominal aorta. There is a left circumaortic renal vein. Mild upper left para -aortic lymphadenopathy is noted. This is likely reactive. No pelvic lymphadenopathy or pelvic free f luid. The uterus and bilateral adnexa are unremarkable. Colonic diverticulosis. No evidence for acute diverticulitis. No bowel wall thickening or obstruction. Normal appendix. There is subtle heterogene ous enhancement within the left kidney most pronounced within the lower pole. This may represent a de veloping pyelonephritis. Small bilateral peripelvic and renal cysts are noted. Left-sided nephrolithi asis, unchanged. Dominant stones within the upper pole measure up to 7 mm no ureteral stones. No righ t-sided hydronephrosis. There is mild bladder wall thickening with adjacent fat stranding. There is a lso mild urothelial thickening within the left renal collecting system and left ureter. This includes a long segment of thickened urothelium involving the distal 5 cm of the left ureter with associated enhancement. Proximal to this site there is mild left hydroureteronephrosis. Mild fat stranding surro unding the left kidney. IMPRESSION: 1. Mild heterogeneous enhancement within the left kidney likely representing a pyelonephritis. 2. There is also mild urothelial enhancement throughout the left renal collecting system and left ure ter suggestive of a pyelitis. The distal 5 cm of the left ureter is thickened and decompressed sugges tive of a possible stricture. This likely accounts for the upstream left-sided hydroureteronephrosis. However, follow-up urology consultation recommended to exclude the less likely possibility of an occ ult urothelial lesion. 3. Bladder wall thickening with adjacent fat stranding consistent with a cystitis. 4. Left-sided nephrolithiasis. No ureteral stones. 5. Additional findings as described above. ACT 112: Positive. There are findings on this exam that require communication between the performing entity and the patient following Patient Test Result Information Act ([place] Act 112) guidelines. Electronically signed by: Fernando Nichols M.D. 01/03/2023 6:35 PM
[2023-01-03] MEDS ORDERED: cefTRIAXone SODIUM 2,000 MG/70 ML BAG IV STA (18:48)
[2023-01-03 19:44] LABS: Influenza A virus by PCR Negative (Neg); Influenza B virus by PCR Negative (Neg); RSV by PCR Negative (Neg); SARS CoV2 RNA(COVID-19) Ceph NEGATIVE (Negative)
--- NOTE | 2023-01-03 20:13 | History & Physical Report ---
Date of Service January 03, 2023 Assessment & Plan (1) Pyelonephritis: Plan: -Admit to med/surg -Currently stable and non-toxic appearing -Patient started to experience fever, left flank pain, and rigors last night -UA appears infected today, CT of the abd/pelvis w/con shows signs suggestive of left pyelonephritis/pyelitis with left hydronephrosis with left ureteral stricture -Renal function is stable, no leukocytosis but procal elevated at 0.75 -Patient is also immunocompromised due to apremilast for psoriasis -S/P one dose of Ceftriaxone in the ED, no previous hx of resistant organisms -Continue with Ceftriaxone for now -S/P 1L NSS in the ED, will give 1L Normosol now then continue on maintenance Normosol overnight -Pain control with tylenol and tramadol -Urology consult placed, will make NPO after 2400 for possible stent placement tomorrow -SQ lovenox for DVT PPX -HH, DMII diet until midnight -AM CBC, CMP, Mag (2) Diabetes mellitus type 2, uncontrolled, without complications: Plan: -Hold metformin -Monitor BSG ACHS, goal is 110-160 -Normally takes 44 units HS lantus, will decrease to 10 units BID to avoid hypoglycemia while NPO -CF of 50 ACHS -Adjust regimen as needed (3) Hypertension: Plan: -Currently stable -Will hold home lisinopril for now to avoid hypotension if she were to become se ptic overnight (4) Psoriasis: Plan: -Hold Apremilast while dealing with acute infection Plan The patient was discussed with Dr. Jimenez at the time of the admission History of Present Illness Chief Complaint: Nausea, fever, chills Primary Care Provider: DO Nanette Kohler is a 62 year old female with a PMH significant for HTN, DMII, psoriasis (on Otezla), and asthma who presented to the [facility] ED on 01/03 with complaints of fever, chills, and nausea. Per chart review, the patient recently underwent left ureteral stent removal with Dr. Covington on 12/31. The stent was initially placed by Dr. Covington on 12/27 due to left Nephrolithiasis. In the ED today the patient was noted to be tachycardic at 101 but otherwise stable. Labs were significant for a procal of 0.75 and UA concerning for UTI. Chest xray was read as "Mild cardiomegaly. Otherwise, no acute process within the chest.". CT of the abd/pelvis w/IV con was read as "1. Mild heterogeneous enhancement within the left kidney likely representing a pyelonephritis. 2. There is also mild urothelial enhancement throughout the left renal collecting system and left ureter suggestive of a pyelitis. The distal 5 cm of the left ureter is thickened and decompressed suggestive of a possible stricture. This likely accounts for the upstream left-sided hydroureteronephrosis. However, follow-up urology consultation recommended to exclude the less likely possibility of an occult urothelial lesion. 3. Bladder wall thickening with adjacent fat stranding consistent with a cystitis. 4. Left-sided nephrolithiasis. No ureteral stones. 5. Additional findings as described above.". Prior to admission the patient was given a dose of Ceftriaxone and 1gm PO tylenol, and 1L NSS. At the time of the exam the patient was sitting in bed in no acute distress with her daughter sitting bedside. The patient confirms that she was treated with Keflex for possible UTI and then completed a short course of Bactrim after her stent removal. Since her stent removal she has had ongoing left flank pain. Yesterday she started to develop rigors and a fever of 101F. She tried to co ntrol her symptoms with tylenol and ibuprofen but her rigors and fever returned this afternoon, promoting her to come to the ED. Her symptoms are currently under control, she denies recent chest pain, SOB, abd pain, nausea, vomiting, diarrhea, hematuria, LE swelling and recent trauma. Please refer to Dr. Jimenez's attestation for any changes to the treatment plan Allergies Allergy/AdvReac Type Severity Reaction Status Date / Time ciprofloxacin [From Cipro] Allergy Mild Rash Verified 12/27/22 06:19 metronidazole [From Flagyl] Allergy Mild rash Verified 12/27/22 06:19 amoxicillin [From Augmentin] AdvReac Mild nausea Verified 12/27/22 06:19 vomiting clarithromycin AdvReac Mild NAUSEA Verified 12/27/22 06:19 clavulanic acid AdvReac Mild NAUSEA Verified 12/27/22 06:19 Home Medications Medication Instructions Recorded Confirmed Type cholecalciferol (vitamin D3) 50 2,000 units PO HS 11/14/18 01/03/23 History mcg (2,000 unit) tablet cyanocobalamin (vitamin B-12) 1,000 mcg PO QAM #30 tabs 05/18/19 01/03/23 History 1,000 mcg tablet lancets 30 gauge (OneTouch Delica #25 ea 01/16/21 01/03/23 History Lancets) BD Ultra-Fine Janessa Pen Needle 32 #400 ea 02/19/22 01/03/23 Rx gauge x 5/32" (pen needle, diabetic) blood sugar diagnostic (OneTouch #100 ea 04/17/22 01/03/23 Rx Verio test strips) blood-glucose sensor (FreeStyle #2 ea 08/27/22 01/03/23 Rx Iqra 3 Sensor device) insulin aspart U-100 100 unit/mL 40 unit (0.4 mL) subcut DAILY #45 09/03/22 01/03/23 Rx (3 mL) subcutaneous pen (Novolog mL FlexPen U-100 Insulin aspart) atorvastatin 20 mg tablet 20 mg PO HS #90 tabs 10/01/22 01/03/23 Rx metformin 500 mg tablet,extended 1,000 mg PO BID #180 tabs 11/07/22 01/03/23 Rx release 24 hr insulin glargine U-300 conc 300 44 unit subcut HS 11/09/22 01/03/23 History unit/mL (1.5 mL) subcutaneous pen (Toujeo SoloStar U-300 Insulin) omeprazole 40 mg capsule,delayed 40 mg PO HS 11/09/22 01/03/23 History release apremilast 30 mg tablet (Otezla) 30 mg PO BID #60 tabs 12/13/22 01/03/23 Rx aspirin 81 mg tablet,delayed 81 mg PO QAM 12/20/22 01/03/23 History release (Adult Low Dose Aspirin) betamethasone dipropionate 0.05 % 1 applic topical UD PRN psoriasis 12/20/22 01/03/23 History lotion hydrocortisone 2.5 % topical cream 1 applic topical BID PRN psoriasis 12/20/22 01/03/23 History lisinopril 2.5 mg tablet 2.5 mg PO QAM 12/20/22 01/03/23 History triamcinolone acetonide 0.1 % 1 applic topical BID PRN psoriasis 12/20/22 01/03/23 History topical cream oxycodone-acetaminophen 7.5 mg-325 1 tab PO Q8H PRN pain #7 tabs 12/27/22 01/03/23 Rx mg tablet (Percocet) tamsulosin 0.4 mg capsule 0.4 mg PO HS #30 caps 12/27/22 01/03/23 Rx Past Med/Surg History Medical History Adrenal adenoma hx Candidal intertrigo Congestion of nasal sinus Depression Diabetes mellitus type 2, uncontrolled, without complications IDDM Extrinsic asthma Fatty infiltration of liver History of COVID-19 2019, [facility] test, not hosp; shortness of breath, N/V, diarrhea, chills, fever, loss taste and smell>resolved. 12/30/21, [facility] test, not hosp; fever, vomiting>resolved. History of diverticulitis of colon Hx of chest pain years ago, cardiac testing w/stress test at [facility]-f/u with Dr. Eason, [facility] [place]- only f/u with PCP now Hypercholesterolemia Hypertension Nephrolithiasis Obesity Psoriasis Recurrent UTI starting 06/2022>became septic 08/14-08/17/22, admitted to [facility] Surgical History History of x1 Hx of lithotripsy S/P cholecystectomy S/P tonsillectomy S/P tooth extraction 08/2021 Family History Mother Anxiety Cardiac disorder Depression Diabetes Hypertension Myocardial infarction Sarcoidosis Father Asthma Skin cancer Grandmother (Maternal) Colorectal cancer Social History Smoking Status: Never smoker Second Hand Exposure: No; Do You Dip or Chew Tobacco: No; Hx Alcohol Use: No Hx Substance Use: No Preferred Language: Vietnamese Communication Ability: Effective Visual Impairment: No Limitations Hearing Ability: Normal Power Digger Operator Required: No Beliefs That Will Affect Care: None marital status: Current Living Situation: Spouse current occupational status: employed current occupation: CPA Other Information That Helps Us Care for You: No Feels Safe at Home: Yes Safety Concerns: Feels Safe At This Time Childhood Exposure to Second-Hand Smoke: Yes Diet: low carbohydrate caffeine: Yes during the past year weight has: remained stable Dental Care, Regularly: Yes Physical Activity Frequency: Does not Exercise Seatbelt Use: always Sunscreen Use: Yes Assistive Devices: Glasses Review of Systems Review of Systems: All systems reviewed & are unremarkable except as noted in HPI & below Physical Exam Physical Exam: Physical Exam: General: In no acute distress, stated age, well-nourished, good hygiene HEENT: Normocephalic, atraumatic, no scleral icterus, pupils around round, symmetrical, and reactive to light, moist mucus membranes, trachea midline, no thyromegaly Chest/Pulm: No respiratory distress, symmetrical chest expansion, clear breath sounds throughout Cardiac: RRR, no murmurs noted Abdomen: Negative for ascites and bruising, normoactive bowel sounds, soft, non-tender to palpation throughout : + left CVA tenderness Musculoskeletal: Symmetrical and without signs of acute trauma, upper and lower extremities with full ROM, no atrophy, spasticity, or flaccidity Extremities: Radial, dorsalis pedis, and posterior tibial pulses are intact and symmetrical, no edema noted in the BL LE's Skin: Warm, dry, no rashes , lesions, or scars noted Neuro: Alert and oriented to person, place, month, year, and president, no focal defects, no tremors noted Psych: No acute distress, calm and cooperative during the exam Results & Data Results & Data Vital Signs (Past 12 Hours) Vital Signs Temp Pulse Pulse Resp BP BP Pulse Ox 01/03/23 17:27 93 H 01/03/23 17:16 99 01/03/23 17:16 94 H 18 122/76 98 01/03/23 13:38 37.3 C 101 H 18 131/79 95 O2 Del Method 01/03/23 17:27 01/03/23 17:16 Room Air 01/03/23 17:16 Room Air 01/03/23 13:38 Room Air Laboratory Results Abnormal lab results 01/03/23 01/03/23 01/03/23 Range/Units 15:42 15:42 15:42 RBC 4.12 L (4.20-5.40) M/uL Hct 36.8 L (37.0-47.0) % [place] # (Auto) 0.70 H (0.11-0.59) K/uL Sodium 135 L (136-145) mmol/L Glucose 152 H (70-99(Fasting)) mg/dl Procalcitonin 0.75 H (0-0.5) ng/ml Urine Appearance (Clear) Urine Protein (Negative) Urine Blood (Negative) Urine Nitrite (Negative) Ur Leukocyte Esterase (Negative) Urine WBC (Auto) (0-5) /hpf Urine Bacteria (Auto) (Negative) 01/03/23 Range/Units 15:42 RBC (4.20-5.40) M/uL Hct (37.0-47.0) % [place] # (Auto) (0.11-0.59) K/uL Sodium (136-145) mmol/L Glucose (70-99(Fasting)) mg/dl Procalcitonin (0-0.5) ng/ml Urine Appearance Cloudy A (Clear) Urine Protein Trace H (Negative) Urine Blood 1+ H (Negative) Urine Nitrite Positive A (Negative) Ur Leukocyte Esterase 3+ H (Negative) Urine WBC (Auto) >30 H (0-5) /hpf Urine Bacteria (Auto) 2+ H (Negative) Diagnostic Findings Chest X-Ray 01/03/23 13:46 XR chest 1V portable HISTORY: Sepsis COMPARISON: Chest 12/19/2022. FINDINGS: The cardiac silhouette is mildly enlarged. There are low lung volumes. The lungs are clear. No pleural effusions. No pneumothorax. IMPRESSION: Mild cardiomegaly. Otherwise, no acute process within the chest. ACT 112: Negative or not required by law. Electronically signed by: Fernando Nichols M.D. 01/03/2023 5:05 PM Abdomen/Pelvis CT 01/03/23 16:[address] WITH IV CONTRAST CT DOSE: 1277.69 mGy.cm HISTORY: Left flank pain, UTI, fever, eval pyelo TECHNIQUE: Multiaxial CT images of the abdomen and pelvis were performed following the use of intravenous contrast. A dose lowering technique was utilized adhering to the principles of ALARA. COMPARISON STUDY: Abdomen and pelvis CT 08/14/2022. FINDINGS: Mild dependent changes seen at the lung bases. No pneumoperitoneum. No pneumatosis. No acute fractures identified. There is a small hiatus hernia, unchanged. There is a moderate size fat-containing umbilical hernia again noted. Prior cholecystectomy. The liver, pancreas, spleen, and right adrenal gland unremarkable. There is a stable 2.1 cm left adrenal gland nodule. The main portal vein is patent. Normal caliber abdominal aorta. There is a left circumaortic renal vein. Mild upper left para-aortic lymphadenopathy is noted. This is likely reactive. No pelvic lymphadenopathy or pelvic free fluid. The uterus and bilateral adnexa are unremarkable. Colonic diverticulosis. No evidence for acute diverticulitis. No bowel wall thickening or obstruction. Normal appendix. There is subtle heterogeneous enhancement within the left kidney most pronounced within the lower pole. This may represent a developing pyelonephritis. Small bilateral peripelvic and renal cysts are noted. Left-sided nephrolithiasis, unchanged. Dominant stones within the upper pole measure up to 7 mm no ureteral stones. No right-sided hydronephrosis. There is mild bladder wall thickening with adjacent fat stranding. There is also mild urothelial thickening within the left renal collecting system and left ureter. This includes a long segment of thickened urothelium involving the distal 5 cm of the left ureter with associated enhancement. Proximal to this site there is mild left hydroureteronephrosis. Mild fat stranding surrounding the left kidney. IMPRESSION: 1. Mild heterogeneous enhancement within the left kidney likely representing a pyelonephritis. 2. There is also mild urothelial enhancement throughout the left renal collecting system and left ureter suggestive of a pyelitis. The distal 5 cm of the left ureter is thickened and decompressed suggestive of a possible stricture. This likely accounts for the upstream left-sided hydroureteronephro sis. However, follow-up urology consultation recommended to exclude the less likely possibility of an occult urothelial lesion. 3. Bladder wall thickening with adjacent fat stranding consistent with a cystitis. 4. Left-sided nephrolithiasis. No ureteral stones. 5. Additional findings as described above. ACT 112: Positive. There are findings on this exam that require communication between the performing entity and the patient following Patient Test Result Information Act ([place] Act 112) guidelines. Electronically signed by: Fernando Nichols M.D. 01/03/2023 6:35 PM ECG Additional Comments: Normal sinus rhythm Nonspecific ST abnormality Abnormal ECG When compared with ECG of 19-DEC-2022 11:05, No significant change was found Code Status & VTE Plan Code Status Full code VTE Prophylaxis Plan VTE Prophylaxis will be ordered: Yes Supervising Physician Co-Signing Physician Notes PA Supervision Note: I personally saw and examined the patient. I verified all wiggins points and agree with RAHUL Gonsales with the following exceptions and/or additions: S-patient is a 62-year-old female who recently had a left ureteral stent removed who presents with significant left flank pain, nausea, and fevers at home. Found on CT abdomen/pelvis here to have left pyelitis, pyelonephritis, and distal left ureteral stricture with mild left hydronephrosis and cystitis. She is feeling little bit better after pain medication, IV fluids, and antibiotics. History and ROS reviewed otherwise as above O- Vitals reviewed Gen: AAOx3, NAD HEENT: Anicteric sclerae, EOMI CV: RRR no mgr nl S1S2 Pulm: CTAB no wcr Abd: +BS soft positive left CVA tenderness, ND no masses or hernias Ext: No edema, 2+ DP pulses Skin: No rashes, warm/dry Neuro: Full strength throughout CBC, CMP, urinalysis reviewed A/Y-84-neck-old female here with UTI/left pyelitis and pyelonephritis with left hydronephrosis in the setting of recent removal of left ureteral stent Continue antibiotics, IV fluids, pain medications, antiemetics Urology consult placed Follow cultures Keep n.p.o. in case of procedure for tomorrow PG Care Time/CCT Total # of Minutes Spent Total Time Spent with Patient: Total time spent is greater than 50% in coordination of care (as documented) at patient's floor/unit and/or counseling patient: Coding [place] [address] INT INP/OBS CARE 2/55MIN Patient Type Established Medical Decision Making Moderate Complexity Diagnoses Pyelonephritis N12 Diabetes mellitus type 2, uncontrolled, without complications E11.65 Hypertension I10 Psoriasis L40.9
[2023-01-03] MEDS ORDERED: DEXTROSE 50% 50 ML SYRINGE IV PRN (20:23)
[2023-01-03] MEDS ORDERED: GLUCAGON FOR INJ 1 MG VIAL SQ PRN (20:23)
[2023-01-03] MEDS ORDERED: GLUCOSE 10 TAB/TUBE PO PRN (20:23)
[2023-01-03] MEDS ORDERED: GLUCOSE 40% GEL 15 GM TUBE PO PRN (20:23)
[2023-01-03] MEDS ORDERED: CARBOHYDRATES FOR HYPOGLYCEMIA PO PRN (20:23)
[2023-01-03] MEDS ORDERED: PLASMA-LYTE A 1,000 ML IV ONE (20:56)
[2023-01-03] MEDS ORDERED: ACETAMINOPHEN 325 MG TAB PO STA (20:59)
[2023-01-03] MEDS ORDERED: INSULIN ASPART PER UNIT CHARGE SC SCH (21:00)
[2023-01-03] MEDS ORDERED: ACETAMINOPHEN 325 MG TAB PO PRN (22:53)
[2023-01-03] MEDS ORDERED: traMADol HCL 50 MG TABLET PO PRN (22:53)
[2023-01-03] MEDS ORDERED: PHENAZOPYRIDINE HCL 200 MG TAB PO PRN (22:53)
[2023-01-03] MEDS: LANTUS PER UNIT CHARGE SQ SCH (23:00)
[2023-01-04] MEDS: TAMSULOSIN HCL 0.4 MG CAP PO SCH ×2 (00:35→21:29)
[2023-01-04] MEDS: PANTOprazole 40 MG TAB PO SCH ×2 (00:35→21:29)
[2023-01-04] MEDS: ATORVASTATIN 20 MG TAB PO SCH ×2 (00:35→21:29)
[2023-01-04] MEDS: ENOXAPARIN INJ 40 MG/0.4 ML SYR SQ SCH ×2 (00:35→21:29)
[2023-01-04] MEDS: PLASMA-LYTE A 1,000 ML IV SCH ×2 (00:55→11:00)
[2023-01-04] MEDS ORDERED: Nursing to Pharmacy Communication SCH ×2 (06:30→16:00)
[2023-01-04] MEDS: INSULIN ASPART PER UNIT CHARGE SC SCH ×4 (06:31→21:33)
[2023-01-04 06:50] LABS: Calcium 8.6 mg/dl (8.6-10.3); Magnesium 1.7 mg/dl (1.7-2.4); Potassium 4.3 mmol/L (3.5-5.1)
[2023-01-04 06:56] LABS: Creatinine Clr Calc Pharmacy 51.4 ml/min; Est GFR (African American) 70.9 ml/min; Est GFR (Non-African American) 61.2 ml/min
[2023-01-04] MEDS: ASPIRIN 81 MG ECTAB PO SCH (07:37)
[2023-01-04] MEDS: LANTUS PER UNIT CHARGE SQ SCH ×2 (08:22→21:33)
[2023-01-04 09:13] LABS: Basophils # (auto) 0.04 K/uL (0-0.2); Basophils % (auto) 0.5 %; Eosinophils # (auto) 0.13 K/uL (0-0.50); Eosinophils % (auto) 1.7 %; Hemoglobin 10.9 g/dl (12.0-16.0); Immature Granulocytes # (auto) 0.04 K/uL (0.01-0.20); Immature Granulocytes % (auto) 0.5 %; Lymphocytes # (auto) 0.98 K/uL (1.2-3.4); Lymphocytes % (auto) 12.5 %; Mean Corpuscular Hemoglobin 28.9 pg (25.0-34.0); Mean Corpuscular Volume 87.5 fL (80.0-100.0); Mean Platelet Volume 10.6 fL (9.4-12.4); Monocytes # (auto) 0.98 K/uL (0.11-0.59); Monocytes % (auto) 12.5 %; Neutrophils # (auto) 5.67 K/uL (1.40-6.50); Neutrophils % (auto) 72.3 %; Platelet Count 247 K/uL (130-400); RDW Coefficient of Variation 14.1 % (11.5-14.5); RDW Standard Deviation 45.1 fL (36.4-46.3); Red Blood Count 3.77 M/uL (4.20-5.40); White Blood Count 7.84 K/ul (4.8-10.8)
--- NOTE | 2023-01-04 10:27 | Electrocardiogram Report ---
Test Reason : Blood Pressure : / mmHG Vent. Rate : 091 BPM Atrial Rate : 091 BPM P-R Int : 138 ms QRS Dur : 066 ms QT Int : 348 ms P-R-T Axes : 038 006 011 degrees QTc Int : 428 ms Normal sinus rhythm Normal ECG When compared with ECG of 19-DEC-2022 11:05, No significant change was found Confirmed by Danyel Troy ([id number]) on 01/04/2023 10:27:15 AM Referred By: Confirmed By:Danyel Troy
--- NOTE | 2023-01-04 14:17 | Urology Consultation ---
Date of Consultation January 04, 2023 Assessment & Plan (1) Pyelonephritis: (2) Nephrolithiasis: Plan 62yo/F status post recent urological procedure admitted with left pyelonephritis/UTI. Afebrile and hemodynamically stable. Labs show no leukocytosis and normal renal function. Urine culture prelim gram-negative bacilli. Blood cultures pending. Continues on IV ceftriaxone. Voiding spontaneously. Continue to monitor. No acute intervention warranted at this time. CT abdomen pelvis findings consistent with pyelonephritis/UTI. The mention of possible stricture is likely due to recent stent removal and spasms. Continue supportive care and antibiotics. Follow cultures and tailor as culture data becomes available. Patient is scheduled for repeat imaging and follow-up with urology in approximately 1 month. Plan to keep as scheduled. If patient were to develop fevers or other acute changes, can revisit possible stent placement. Urology will follow peripherally. Please contact us with any further questions, concerns, or changes in patient's status. History of Present Illness Attending Physician: Colt Cox History of Present Illness 62 year old female with a PMH significant for HTN, DMII, psoriasis, and asthma who presented to the [facility] ED on 01/03 with complaints of fever, chills, and nausea. Patient recently underwent left ureteroscopy and stone treatment on 12/27/2022 and left ureteral stent removal with Dr. Covington on 12/31/2022. On arrival she was afebrile and hemodynamically stable. Labs show no leukocytosis and normal renal function. Urinalysis with positive nitrites and bacteria. CT abdomen pelvis obtained and showing signs of left pyelonephritis/UTI. She was admitted to medicine for further management and care. Patient was examined at bedside today. Awake, resting in bed on arrival. No acute distress. at bedside. Reports she is feeling much better today. Pain has significantly improved. Denies fevers, chills, nausea, vomiting. Voiding without issue. Denies hematuria or dysuria. CT abdomen pelvis- 1. Mild heterogeneous enhancement within the left kidney likely representing a pyelonephritis. 2. There is also mild urothelial enhancement throughout the left renal collecting system and left ureter suggestive of a pyelitis. The distal 5 cm of the left ureter is thickened and decompressed suggestive of a possible stricture. This likely accounts for the upstream left-sided hydroureteronephrosis. However, follow-up urology consultation recommended to exclude the less likely possibility of an occult urothelial lesion. 3. Bladder wall thickening with adjacent fat stranding consistent with a cystitis. 4. Left-sided nephrolithiasis. No ureteral stones. 5. Additional findings as described above. Allergies Allergy/AdvReac Type Severity Reaction Status Date / Time ciprofloxacin [From Cipro] Allergy Mild Rash Verified 12/27/22 06:19 metronidazole [From Flagyl] Allergy Mild rash Verified 12/27/22 06:19 amoxicillin [From Augmentin] AdvReac Mild nausea Verified 12/27/22 06:19 vomiting clarithromycin AdvReac Mild NAUSEA Verified 12/27/22 06:19 clavulanic acid AdvReac Mild NAUSEA Verified 12/27/22 06:19 Home Medications Medication Instructions Recorded Confirmed Type cholecalciferol (vitamin D3) 50 2,000 units PO HS 11/14/18 01/03/23 History mcg (2,000 unit) tablet cyanocobalamin (vitamin B-12) 1,000 mcg PO QAM #30 tabs 05/18/19 01/03/23 History 1,000 mcg tablet lancets 30 gauge (OneTouch Delica #25 ea 01/16/21 01/03/23 History Lancets) BD Ultra-Fine Janessa Pen Needle 32 #400 ea 02/19/22 01/03/23 Rx gauge x 5/32" (pen needle, diabetic) blood sugar diagnostic (OneTouch #100 ea 04/17/22 01/03/23 Rx Verio test strips) blood-glucose sensor (FreeStyle #2 ea 08/27/22 01/03/23 Rx Iqra 3 Sensor device) insulin aspart U-100 100 unit/mL 40 unit (0.4 mL) subcut DAILY #45 09/03/22 01/03/23 Rx (3 mL) subcutaneous pen (Novolog mL FlexPen U-100 Insulin aspart) atorvastatin 20 mg tablet 20 mg PO HS #90 tabs 10/01/22 01/03/23 Rx metformin 500 mg tablet,extended 1,000 mg PO BID #180 tabs 11/07/22 01/03/23 Rx release 24 hr insulin glargine U-300 conc 300 44 unit subcut HS 11/09/22 01/03/23 History unit/mL (1.5 mL) subcutaneous pen (Toujeo SoloStar U-300 Insulin) omeprazole 40 mg capsule,delayed 40 mg PO HS 11/09/22 01/03/23 History release apremilast 30 mg tablet (Otezla) 30 mg PO BID #60 tabs 12/13/22 01/03/23 Rx aspirin 81 mg tablet,delayed 81 mg PO QAM 12/20/22 01/03/23 History release (Adult Low Dose Aspirin) betamethasone dipropionate 0.05 % 1 applic topical UD PRN psoriasis 12/20/22 01/03/23 History lotion hydrocortisone 2.5 % topical cream 1 applic topical BID PRN psoriasis 12/20/22 01/03/23 History lisinopril 2.5 mg tablet 2.5 mg PO QAM 12/20/22 01/03/23 History triamcinolone acetonide 0.1 % 1 applic topical BID PRN psoriasis 12/20/22 01/03/23 History topical cream oxycodone-acetaminophen 7.5 mg-325 1 tab PO Q8H PRN pain #7 tabs 12/27/22 01/03/23 Rx mg tablet (Percocet) tamsulosin 0.4 mg capsule 0.4 mg PO HS #30 caps 12/27/22 01/03/23 Rx Patient History Medical History Adrenal adenoma hx Candidal intertrigo Congestion of nasal sinus Depression Diabetes mellitus type 2, uncontrolled, without complications IDDM Extrinsic asthma Fatty infiltration of liver History of COVID-19 2019, [facility] test, not hosp; shortness of breath, N/V, diarrhea, chills, fever, loss taste and smell>resolved. 12/30/21, [facility] test, not hosp; fever, vomiting>resolved. History of diverticulitis of colon Hx of chest pain years ago, cardiac testing w/stress test at [facility]-f/u with Dr. Eason, [facility] [place] f/u with PCP now Hypercholesterolemia Hypertension Nephrolithiasis Obesity Psoriasis Recurrent UTI starting 06/2022>became septic 08/14-08/17/22, admitted to [facility] Surgical History History of x1 Hx of lithotripsy S/P cholecystectomy S/P tonsillectomy S/P tooth extraction 08/2021 Family History Mother Anxiety Cardiac disorder Depression Diabetes Hypertension Myocardial infarction Sarcoidosis Father Asthma Skin cancer Grandmother (Maternal) Colorectal cancer Social History Smoking Status: Never smoker Second Hand Exposure: No; Do You Dip or Chew Tobacco: No; Hx Alcohol Use: No Hx Substance Use: No Preferred Language: Palauan Communication Ability: Effective Visual Impairment: No Limitations Hearing Ability: Normal Conceptor Required: No Beliefs That Will Affect Care: None marital status: Current Living Situation: Spouse current occupational status: employed current occupation: CPA Other Information That Helps Us Care for You: No Feels Safe at Home: Yes Safety Concerns: Feels Safe At This Time Childhood Exposure to Second-Hand Smoke: Yes Diet: low carbohydrate caffeine: Yes during the past year weight has: remained stable Dental Care, Regularly: Yes Physical Activity Frequency: Does not Exercise Seatbelt Use: always Sunscreen Use: Yes Assistive Devices: None Review of Systems Review of Systems: All systems reviewed & are unremarkable except as noted in HPI & below Physical Exam Constitutional: well developed and well nourished; no acute distress Respiratory: normal respiratory effort; no respiratory distress and no labored breathing Musculoskeletal: Head/Neck/Chest: normocephalic Skin: No visible rashes or lesions to exposed skin areas Neurologic: moves all extremities and awake Psychiatric: A+Ox3, euthymic affect Results & Data Vital Signs (Past 12 Hours) Vital Signs Temp Pulse Resp BP Pulse Ox O2 Del Method 01/04/23 08:00 Room Air 01/04/23 07:50 37.2 C 97 H 16 120/74 95 Room Air PG Care Time/CCT Total # of Minutes Spent Total Time Spent with Patient: Total time spent is greater than 50% in coordination of care (as documented) at patient's floor/unit and/or counseling patient: Coding Level of Care Code 23816 IN/OBS CONSULT LVL 3,45M Diagnoses Pyelonephritis N12 Nephrolithiasis N20.0
[2023-01-04] MEDS ORDERED: cefTRIAXone SODIUM 2,000 MG in DEXTROSE 5% 50 ML IV SCH (18:00)
--- NOTE | 2023-01-04 22:16 | Hospitalist Progress Note ---
Date of Service January 04, 2023 Assessment & Plan (1) Pyelonephritis: Plan: -Admit to med/surg -Currently stable and non-toxic appearing -Patient started to experience fever, left flank pain, and rigors last night -UA appears infected today, CT of the abd/pelvis w/con shows signs suggestive of left pyelonephritis/pyelitis with left hydronephrosis with left ureteral stricture -Renal function is stable, no leukocytosis but procal elevated at 0.75 -Patient is also immunocompromised due to apremilast for psoriasis -S/P one dose of Ceftriaxone in the ED, no previous hx of resistant organisms -Pain control with tylenol and tramadol -Urology consult placed, will make NPO after 2400 for possible stent placement tomorrow -SQ lovenox for DVT PPX (2) Diabetes mellitus type 2, uncontrolled, without complications: Plan: -Normally takes 44 units HS lantus, will decrease to 10 units BID to avoid hypoglycemia -CF of 50 ACHS -Adjust regimen as needed (3) Hypertension: Plan: -Currently stable -Will continue to hold home lisinopril for now to avoid hypotension if she were to become septic overnight (4) Psoriasis: Plan: -Hold Apremilast while dealing with acute infection Admission and Anticipated Discharge Date Admission Date: January 03, 2023 Subjective Patient reports no new symptoms. Review of Systems Review of Systems: All systems reviewed & are unremarkable except as noted in HPI & below Physical Exam Physical Exam: General: In no acute distress, stated age, well-nourished, good hygiene HEENT: Normocephalic, atraumatic, no scleral icterus, pupils around round, symmetrical, and reactive to light, moist mucus membranes, trachea midline, no thyromegaly Chest/Pulm: No respiratory distress, symmetrical chest expansion, clear breath sounds throughout Cardiac: RRR, no murmurs noted Abdomen: Negative for ascites and bruising, normoactive bowel sounds, soft, non-tender to palpation throughout Musculoskeletal: Symmetrical and without signs of acute trauma, upper and lower extremities with full ROM, no atrophy, spasticity, or flaccidity Extremities: Radial, dorsalis pedis, and posterior tibial pulses are intact and symmetrical, no edema noted in the BL LE's Skin: Warm, dry, no rashes , lesions, or scars noted Neuro: Alert and oriented to person, place, month, year, and president, no focal defects, no tremors noted Psych: No acute distress, calm and cooperative during the exam Results & Data Results & Data Vital Signs (Past 12 Hours) Vital Signs Temp Pulse Pulse Resp BP Pulse Ox O2 Del Method 01/04/23 20:19 37.4 C 93 H 18 115/76 97 Room Air 01/04/23 15:25 37.5 C 90 14 112/75 97 Room Air PG Care Time/CCT Total # of Minutes Spent Total Time Spent with Patient: Total time spent is greater than 50% in coordination of care (as documented) at patient's floor/unit and/or counseling patient: Coding Level of Care Code 12430 SUB INP/OBS CARE 2/35MIN Diagnoses Pyelonephritis N12 Diabetes mellitus type 2, uncontrolled, without complications E11.65 Hypertension I10 Psoriasis L40.9
[2023-01-05] MEDS: ASPIRIN 81 MG ECTAB PO SCH (09:07)
[2023-01-05] MEDS: LANTUS PER UNIT CHARGE SQ SCH (09:08)
[2023-01-05] MEDS: INSULIN ASPART PER UNIT CHARGE SC SCH ×2 (09:08→13:06)
[2023-01-05 09:51] LABS: Calcium 9.1 mg/dl (8.6-10.3); Creatinine Clr Calc Pharmacy 47.6 ml/min; Est GFR (African American) 64.6 ml/min; Est GFR (Non-African American) 55.8 ml/min
[2023-01-05 09:52] LABS: Basophils # (auto) 0.04 K/uL (0-0.2); Basophils % (auto) 0.6 %; Eosinophils # (auto) 0.28 K/uL (0-0.50); Hematocrit (blood only) 34.9 % (37.0-47.0); Hemoglobin 11.6 g/dl (12.0-16.0); Immature Granulocytes # (auto) 0.02 K/uL (0.01-0.20); Immature Granulocytes % (auto) 0.3 %; Lymphocytes # (auto) 1.45 K/uL (1.2-3.4); Lymphocytes % (auto) 20.9 %; Mean Corpuscular Hemoglobin 29.7 pg (25.0-34.0); Mean Corpuscular Hgb Conc 33.2 g/dL (32.0-36.0); Mean Corpuscular Volume 89.3 fL (80.0-100.0); Mean Platelet Volume 10.4 fL (9.4-12.4); Monocytes # (auto) 0.83 K/uL (0.11-0.59); Neutrophils # (auto) 4.32 K/uL (1.40-6.50); Neutrophils % (auto) 62.2 %; Platelet Count 256 K/uL (130-400); RDW Coefficient of Variation 14.1 % (11.5-14.5); RDW Standard Deviation 45.8 fL (36.4-46.3); Red Blood Count 3.91 M/uL (4.20-5.40); White Blood Count 6.94 K/ul (4.8-10.8)
[2023-01-05] MEDS ORDERED: CEFDINIR 300 MG CAP PO STA (12:45)
--- NOTE | 2023-01-05 12:51 | Discharge Summary ---
Date of Service January 05, 2023 Admission HPI Per Admitting Provider Nanette is a 62 year old female with a PMH significant for HTN, DMII, psoriasis (on Otezla), and asthma who presented to the [facility] ED on 01/03 with complaints of fever, chills, and nausea. Per chart review, the patient recently underwent left ureteral stent removal with Dr. Covington on 12/31. The stent was initially placed by Dr. Covington on 12/27 due to left Nephrolithiasis. In the ED today the patient was noted to be tachycardic at 101 but otherwise stable. Labs were significant for a procal of 0.75 and UA concerning for UTI. Chest xray was read as "Mild cardiomegaly. Otherwise, no acute process within the chest.". CT of the abd/pelvis w/IV con was read as "1. Mild heterogeneous enhancement within the left kidney likely representing a pyelonephritis. 2. There is also mild urothelial enhancement throughout the left renal collecting system and left ureter suggestive of a pyelitis. The distal 5 cm of the left ureter is thickened and decompressed suggestive of a possible stricture. This likely accounts for the upstream left-sided hydroureteronephrosis. However, follow-up urology consultation recommended to exclude the less likely possibility of an occult urothelial lesion. 3. Bladder wall thickening with adjacent fat stranding consistent with a cystitis. 4. Left-sided nephrolithiasis. No ureteral stones. 5. Additional findings as described above.". Prior to admission the patient was given a dose of Ceftriaxone and 1gm PO tylenol, and 1L NSS. At the time of the exam the patient was sitting in bed in no acute distress with her daughter sitting bedside. The patient confirms that she was treated with Keflex for possible UTI and then completed a short course of Bactrim after her stent removal. Since her stent removal she has had ongoing left flank pain. Yesterday she started to develop rigors and a fever of 101F. She tried to control her symptoms with tylenol and ibuprofen but her rigors and fever returned this afternoon, promoting her to come to the ED. Her symptoms are currently under control, she denies recent chest pain, SOB, abd pain, nausea, vomiting, diarrhea, hematuria, LE swelling and recent trauma. Principal Diagnosis acute pyelonephritis Discharge Exam General: In no acute distress, stated age, well-nourished, good hygiene HEENT: Normocephalic, atraumatic, no scleral icterus, pupils around round, symmetrical, and reactive to light, moist mucus membranes, trachea midline, no thyromegaly Chest/Pulm: No respiratory distress, symmetrical chest expansion, clear breath sounds throughout Cardiac: RRR, no murmurs noted Abdomen: Negative for ascites and bruising, normoactive bowel sounds, soft, non-tender to palpation throughout Musculoskeletal: Symmetrical and without signs of acute trauma, upper and lower extremities with full ROM, no atrophy, spasticity, or flaccidity Extremities: Radial, dorsalis pedis, and posterior tibial pulses are intact and symmetrical, no edema noted in the BL LE's Skin: Warm, dry, no rashes , lesions, or scars noted Neuro: Alert and oriented to person, place, month, year, and president, no focal defects, no tremors noted Psych: No acute distress, calm and cooperative during the exam Discharge Data Allergies Allergy/AdvReac Type Severity Reaction Status Date / Time ciprofloxacin [From Cipro] Allergy Mild Rash Verified 12/27/22 06:19 metronidazole [From Flagyl] Allergy Mild rash Verified 12/27/22 06:19 amoxicillin [From Augmentin] AdvReac Mild nausea Verified 12/27/22 06:19 vomiting clarithromycin AdvReac Mild NAUSEA Verified 12/27/22 06:19 clavulanic acid AdvReac Mild NAUSEA Verified 12/27/22 06:19 Consultations 01/03/23 20:05 ED Decision to Admit Stat 01/03/23 20:52 Consult Urology Routine Ordered Studies 01/03/23 16:47 CT abd pelvis IV con only Stat Hospital Course (1) Pyelonephritis: -Admit to med/surg -Currently stable and non-toxic appearing -Patient started to experience fever, left flank pain, and rigors last night -UA appears infected today, CT of the abd/pelvis w/con shows signs suggestive of left pyelonephritis/pyelitis with left hydronephrosis with left ureteral stricture -Renal function is stable, no leukocytosis but procal elevated at 0.75 -Patient is also immunocompromised due to apremilast for psoriasis Patient will be on rocephin x 2 doses. will then transition to cefdinir Patient did not have any fever while admitted. (2) Diabetes mellitus type 2, uncontrolled, without complications: -Normally takes 44 units HS lantus, will decrease to 10 units BID to avoid hypoglycemia -CF of 50 ACHS -Adjust regimen as needed (3) Hypertension: -Currently stable -Will continue to hold home lisinopril for now to avoid hypotension if she were to become septic overnight (4) Psoriasis: -Hold Apremilast while dealing with acute infection Total Time Total Time Spent Total Time Spent (In Minutes): 32 Discharge Plan Discharge Items Reason For Visit: PYELONEPHRITIS Discharge Diagnosis: pyelonephritis Condition on Discharge: Good Activity: Resume your previous activity Follow-up/Referrals: Yin Mac DO [Primary Care Provider] - Medications and DC Order Prescriptions: No Action (DME) pen needle, diabetic [BD Ultra-Fine Janessa Pen Needle] 32 gauge x 5/32" needle See Rx Instructions .ROUTE .MEDSUPPLY Qty: 400 3RF Rx Instructions: Four times a day (DME) OneTouch Verio test strips Strip See Rx Instructions .ROUTE .MEDSUPPLY Qty: 100 1RF Rx Instructions: Test blood sugar 1-2 times a day (DME) FreeStyle Iqra 3 Sensor Device See Rx Instructions .Route Qty: 2 11RF Rx Instructions: Change every 14 days insulin aspart U-100 [Novolog FlexPen U-100 Insulin] 100 unit/mL (3 mL) insulin pen 40 unit SQ DAILY Qty: 45 2RF Rx Instructions: inject as directed with meals to a TDD of 40 units atorvastatin 20 mg tablet 20 mg PO HS Qty: 90 3RF metformin 500 mg tablet extended release 24 hr 1,000 mg PO BID Qty: 180 3RF Otezla 30 mg tablet 30 mg PO BID Qty: 60 1RF Patient Comments: still on starter pack currently taking 20mg BID. cholecalciferol (vitamin D3) 2,000 unit tablet 2,000 units PO HS cyanocobalamin (vitamin B-12) 1,000 mcg tablet 1,000 mcg PO QAM Qty: 30 omeprazole 40 mg capsule,delayed release(DR/EC) 40 mg PO HS (DME) lancets [OneTouch Delica Lancets] 30 gauge misc See Rx Instructions .ROUTE .MEDSUPPLY Qty: 25 Rx Instructions: Test blood sugar 1-2 times a day Toujeo SoloStar U-300 Insulin 300 unit/mL (1.5 mL) insulin pen 44 unit SQ HS aspirin [Adult Low Dose Aspirin] 81 mg tablet,delayed release (DR/EC) 81 mg PO QAM Hold Instructions: on hold 12/20 (7 days prior to surgery) triamcinolone acetonide 0.1 % cream 1 applic topical BID PRN (Reason: psoriasis) Rx Instructions: Apply to areas of the trunk twice daily x 2 weeks as directed. hydrocortisone 2.5 % cream 1 applic topical BID PRN (Reason: psoriasis) Rx Instructions: Apply to areas of the ears twice daily x 2 weeks as directed. betamethasone dipropionate 0.05 % lotion 1 applic topical UD PRN (Reason: psoriasis) Rx Instructions: Apply to areas of the scalp daily x 3 weeks as directed. lisinopril 2.5 mg tablet 2.5 mg PO QAM tamsulosin 0.4 mg capsule 0.4 mg PO HS Qty: 30 0RF oxycodone-acetaminophen [Percocet] 7.5-325 mg tablet 1 tab PO Q8H PRN (Reason: pain) Qty: 7 0RF Admission Data Admit Date/Time: 01/03/23 20:22 Attending Provider: Colt Cox Admit Provider: Susanne Jimenez Primary Care Provider: Yin Mac Other Providers: Jorge Goodrich ; Susanne Jimenez Coding Level of Care Code 80219 INP/OBS DISCH >30 MIN Diagnoses Pyelonephritis N12 Diabetes mellitus type 2, uncontrolled, without complications E11.65 Hypertension I10 Psoriasis L40.9
--- NOTE | 2023-01-09 08:25 | Coding Query ---
CODING QUERY FOR UNCONTROLLED DIABETES To promote full compliance with coding requirements relating to patient care, provider participation is requested in all cases of classroom aide uncertainty. Please assist us with the question(s) below: Coding Question: The term uncontrolled Diabetes was used throughout the record. To be able to code this diagnosis properly, could you please clarify the diagnosis below: ( ) Uncontrolled Diabetes meaning hypoglycemia ( x ) Uncontrolled Diabetes meaning hyperglycemia ( ) Other (please specify) Principal Diagnosis: "that condition established after study, to be chiefly responsible for occasioning the admission of the patient to the hospital for care." Co-Existing Principal Diagnosis: "when two or more diagnoses equally meet the criteria for principal diagnosis as determined by the circumstances of admission, diagnostic work up, and/or therapy provided, and the Alphabetic Index, Tabular List, or another coding guideline does not provide sequencing direction, any one of the diagnoses may be sequenced first." "When the physician has documented what appears to be a current diagnosis in the body of the record, but has not included the diagnosis in the final diagnostic statement, the physician should be asked whether the diagnosis should be added." (Source Coding [facility] 2 QTR90. p3-4) MICHELLE
== END 2023-01-05 14:48 | disposition home or self-care (01) | DRG 690 ==
LOC: ED 13:32 → SUATTDRO 20:22 → EDINP 20:22 → 3E 22:53